=== PATIENT | female | born 1945 | race Caucasian/White ===

== ENCOUNTER 2016-11-02 15:08 | Emergency (ER) | payer MEDICARE ==
[2016-11-02] MEDS ORDERED: APIXABAN 5 MG TAB PO STA (16:11)
--- NOTE | 2016-11-02 16:11 | ED ---
General Adult HPI - General Chief complaint: Extremity Problem,Nontraumatic Stated complaint: L knee blood clot Time Seen by Provider: 11/02/16 15:22 Source: patient, RN notes reviewed Mode of arrival: ambulatory Limitations: no limitations - History of Present Illness Initial comments: Patient is a pleasant 71-year-old female presenting to the emergency department complaining of left leg discomfort. Symptoms started almost 2 weeks ago. Patient did have some mild discomfort behind her right knee however that resolved after a couple of days. Patient denies any chest discomfort. No difficulty in breathing. No history of similar symptoms previously. Patient is not currently on any blood thinners. - Related Data Home Medications Medication Instructions Recorded Confirmed Levothyroxine Sodium [Synthroid] 75 mcg PO DAILY 02/03/15 11/02/16 Simvastatin [Zocor] 40 mg PO HS 02/03/15 11/02/16 Ascorbic Acid [Vitamin C] 250 mg PO DAILY 11/02/16 11/02/16 Cholecalciferol [Vitamin D3] 1,000 unit PO DAILY 11/02/16 11/02/16 [place]-3 Fatty Acids/Fish Oil [Fish 1 cap PO DAILY 11/02/16 11/02/16 Oil 1,000 mg Softgel] Previous Rx's Medication Instructions Recorded Apixaban [Eliquis] 5 mg PO BID #75 tab 11/02/16 Allergies Allergy/AdvReac Type Severity Reaction Status Date / Time naproxen [From Naprosyn] Allergy Unknown Verified 11/02/16 15:16 rofecoxib [From Vioxx] Allergy Unknown Verified 11/02/16 15:16 sulfamethoxazole Allergy Unknown Verified 11/02/16 15:16 [From Bactrim] trimethoprim [From Bactrim] Allergy Unknown Verified 11/02/16 15:16 celecoxib [From Celebrex] AdvReac Nausea & Verified 02/03/15 08:37 Vomiting Review of Systems ROS Statement: Those systems with pertinent positive or pertinent negative responses have been documented in the HPI. ROS Other: All systems not noted in ROS Statement are negative. Constitutional: Denies: fever Eyes: Denies: eye pain ENT: Denies: ear pain Respiratory: Denies: cough, dyspnea Cardiovascular: Denies: chest pain Endocrine: Denies: fatigue Gastrointestinal: Denies: abdominal pain Genitourinary: Denies: urgency Musculoskeletal: Denies: back pain Skin: Denies: rash Neurological: Denies: weakness Past Medical History Past Medical History: Hyperlipidemia, Osteoarthritis (OA), Thyroid Disorder History of Any Multi-Drug Resistant Organisms: None Reported Past Surgical History: Hysterectomy Past Psychological History: No Psychological Hx Reported Smoking Status: Current every day smoker Past Alcohol Use History: None Reported Past Drug Use History: None Reported General Exam Limitations: no limitations General appearance: alert, in no apparent distress Head exam: Present: atraumatic Eye exam: Present: normal appearance, PERRL ENT exam: Present: normal oropharynx Neck exam: Present: normal inspection Respiratory exam: Present: normal lung sounds bilaterally Cardiovascular Exam: Present: regular rate, normal rhythm Expanded Peripheral pulses: 2+: Posterior Tibialis (R), Posterior Tibialis (L) GI/Abdominal exam: Present: soft. Absent: tenderness Extremities exam: Present: tenderness (Mild tenderness behind the left knee). Absent: pedal edema, calf tenderness Neurological exam: Present: alert Psychiatric exam: Present: normal affect, normal mood Skin exam: Present: normal color Course Vital Signs 11/02/16 15:12 Temperature 98.1 F Pulse Rate 90 Respiratory 20 Rate Blood Pressure 135/65 O2 Sat by Pulse 99 Oximetry Medical Decision Making - Medical Decision Making Patient is warned of risks regarding anticoagulants. Disposition Clinical Impression: Deep vein thrombosis of lower extremity Disposition: HOME SELF-CARE Condition: Stable Instructions: Deep Venous Thrombosis (ED) Additional Instructions: Please follow-up to in the beginning of the week. Return for chest pain or difficulty in breathing, increased leg swelling, bleeding, worsening symptoms or other concerns. Prescriptions: Apixaban [Eliquis] 5 mg PO BID #75 tab Referrals: Austyn Ponce MD [Primary Care Provider] - 1-2 days Time of Disposition: 16:10
[2016-11-02 16:32] VITALS: BP 144/70; PULSE 81; RESP 18; TEMP 98.7
== END 2016-11-02 16:32 | disposition home or self-care (01) ==
LOC: EC 15:08
DX: I82.402 Acute embolism and thrombosis of unspecified deep veins of left lower extremity (principal); E78.5 Hyperlipidemia, unspecified; E07.9 Disorder of thyroid, unspecified; F17.200 Nicotine dependence, unspecified, uncomplicated; Z88.2 Allergy status to sulfonamides; Z88.6 Allergy status to analgesic agent; Z88.8 Allergy status to other drugs, medicaments and biological substances; Z79.899 Other long term (current) drug therapy
CPT/HCPCS: 99283

== ENCOUNTER → 2016-11-02 | Outpatient (CLI) | payer MEDICARE ==
--- NOTE | 2016-11-02 14:17 | US ---
EXAMINATION TYPE: US venous doppler duplex LE DATE OF EXAM: 11/02/2016 1:21 PM COMPARISON: NONE CLINICAL HISTORY: Edema lower Extremities R60.0. SIDE PERFORMED: Bilateral TECHNIQUE: The lower extremity deep venous system is examined utilizing real time linear array sonog kalyn with graded compression, doppler sonography and color-flow sonography. VESSELS IMAGED: External Iliac Vein (EIV) Common Femoral Vein Deep Femoral Vein Greater Saphenous Vein * Femoral Vein Popliteal Vein Small Saphenous Vein * Proximal Calf Veins (* superficial vessels) Grayscale, color doppler, spectral doppler imaging performed of the deep veins of the lower extremiti es. There is normal flow, compressibility, vascular waveforms bilaterally. Right Leg: Negative for DVT Left Leg: Positive for DVT Fluid seen behind left knee medially. IMPRESSION: No evidence for DVT.
== END ==
LOC: RADUSWWP 12:35
PROVIDERS: ATTEND Family Medicine
DX: I82.432 Acute embolism and thrombosis of left popliteal vein (principal)
CPT/HCPCS: 93970

== ENCOUNTER → 2016-11-21 | Outpatient (CLI) | payer MEDICARE ==
--- NOTE | 2016-11-21 09:56 | XR ---
EXAMINATION TYPE: XR knee complete LT DATE OF EXAM: 11/21/2016 COMPARISON: NONE HISTORY: Pain TECHNIQUE: Four views are submitted. FINDINGS: Severe narrowing of the joint space noted with hypertrophic changes. Small amount of fluid in the sup rapatellar bursa. Osseous structures are intact. No acute fracture seen. IMPRESSION: 1. Severe osteoarthritis.
== END | disposition home or self-care (01) ==
LOC: RADXRMAIN 09:25
PROVIDERS: ATTEND Physician Assistant
DX: M17.12 Unilateral primary osteoarthritis, left knee (principal)

== ENCOUNTER 2016-11-24 06:14 | Emergency (ER) | payer MEDICARE ==
--- NOTE | 2016-11-24 06:32 | ED ---
General Adult HPI - General Source: patient, family, RN notes reviewed Mode of arrival: wheelchair Limitations: no limitations <Ashish Wolff - Last Filed: 11/24/16 06:59> <Ashish Talbot - Last Filed: 11/24/16 07:52> - General Chief complaint: GI Bleed Stated complaint: blood in spit Time Seen by Provider: 11/24/16 06:20 - History of Present Illness Initial comments: This is a 71-year-old female presents emergency Department with a past medical history significant for a blood clot in her right leg. Patient states she's on eliquis for the condition. Patient comes in today because she coughed once and a little sputum came up and there was bright red blood in the sputum. Patient states she's not having any chest pain there is no difficulty breathing or shortness of breath. Patient denies any other abnormal bleeding. Patient states she blew her nose and there was no blood in her nose. Patient denies any bleeding in her mouth. Patient denies any trauma recently. Patient denies any dark black or bloody stools. Patient denies any hematuria. Patient states besides the bleeding she has had no other symptoms at this time. (Ashish Wolff) - Related Data Home Medications Medication Instructions Recorded Confirmed Levothyroxine Sodium [Synthroid] 75 mcg PO DAILY 02/03/15 11/24/16 Simvastatin [Zocor] 40 mg PO HS 02/03/15 11/24/16 Ascorbic Acid [Vitamin C] 250 mg PO DAILY 11/02/16 11/24/16 Cholecalciferol [Vitamin D3] 1,000 unit PO DAILY 11/02/16 11/24/16 [place]-3 Fatty Acids/Fish Oil [Fish 1 cap PO DAILY 11/02/16 11/24/16 Oil 1,000 mg Softgel] Previous Rx's Medication Instructions Recorded Apixaban [Eliquis] 5 mg PO BID #75 tab 11/02/16 Allergies Allergy/AdvReac Type Severity Reaction Status Date / Time naproxen [From Naprosyn] Allergy Unknown Verified 11/24/16 06:20 rofecoxib [From Vioxx] Allergy Unknown Verified 11/24/16 06:20 sulfamethoxazole Allergy Unknown Verified 11/24/16 06:20 [From Bactrim] trimethoprim [From Bactrim] Allergy Unknown Verified 11/24/16 06:20 celecoxib [From Celebrex] AdvReac Nausea & Verified 11/24/16 06:20 Vomiting Review of Systems ROS Other: All systems not noted in ROS Statement are negative. <Ashish Wolff - Last Filed: 11/24/16 06:59> ROS Other: All systems not noted in ROS Statement are negative. <Ashish Talbot - Last Filed: 11/24/16 07:52> ROS Statement: Those systems with pertinent positive or pertinent negative responses have been documented in the HPI. Past Medical History Past Medical History: Deep Vein Thrombosis (DVT), Hyperlipidemia, Osteoarthritis (OA), Thyroid Disorder History of Any Multi-Drug Resistant Organisms: None Reported Past Surgical History: Hysterectomy Past Psychological History: No Psychological Hx Reported Smoking Status: Current every day smoker Past Alcohol Use History: None Reported Past Drug Use History: None Reported <Ashish Wolff - Last Filed: 11/24/16 06:59> General Exam Limitations: no limitations <Ashish Wolff - Last Filed: 11/24/16 06:59> General appearance: alert, in no apparent distress Head exam: Present: atraumatic, normocephalic, normal inspection Eye exam: Present: normal appearance, PERRL, EOMI. Absent: scleral icterus, conjunctival injection, periorbital swelling ENT exam: Present: normal exam, mucous membranes moist Neck exam: Present: normal inspection. Absent: tenderness, meningismus, lymphadenopathy Respiratory exam: Present: normal lung sounds bilaterally. Absent: respiratory distress, wheezes, rales, rhonchi, stridor Cardiovascular Exam: Present: regular rate, normal rhythm, normal heart sounds. Absent: systolic murmur, diastolic murmur, rubs, gallop, clicks GI/Abdominal exam: Present: soft, normal bowel sounds. Absent: distended, tenderness, guarding, rebound, rigid Extremities exam: Present: normal inspection, full ROM, normal capillary refill. Absent: tenderness, pedal edema, joint swelling, calf tenderness Back exam: Present: normal inspection Neurological exam: Present: alert, oriented X3, CN II-XII intact Psychiatric exam: Present: normal affect, normal mood Skin exam: Present: warm, dry, intact, normal color. Absent: rash <Ashish Talbot - Last Filed: 11/24/16 07:52> - General Exam Comments Initial Comments: GENERAL: Patient is well-developed and well-nourished. Patient is nontoxic and well- hydrated and is in no acute distress. ENT: Neck is soft and supple. No significant lymphadenopathy is noted. Oropharynx is clear. Moist mucous membranes. Neck has full range of motion without eliciting any pain. EYES: The sclera were anicteric and conjunctiva were pink and moist. Extraocular movements were intact and pupils were equal round and reactive to light. Eyelids were unremarkable. PULMONARY: Unlabored respirations. Good breath sounds bilaterally. No audible rales rhonchi or wheezing was noted. CARDIOVASCULAR: There is a regular rate and rhythm without any murmurs gallops or rubs. ABDOMEN: Soft and nontender with normal bowel sounds. No palpable organomegaly was noted. There is no palpable pulsatile mass. SKIN: Skin is clear with no lesions or rashes and otherwise unremarkable. NEUROLOGIC: Patient is alert and oriented x3. Cranial nerves II through XII are grossly intact. Motor and sensory are also intact. Normal speech, volume and content. Symmetrical smile. MUSCULOSKELETAL: Normal extremities with adequate strength and full range of motion. LYMPHATICS: No significant lymphadenopathy is noted PSYCHIATRIC: Normal psychiatric evaluation. (Ashish Wolff) Course <Ashish Wolff - Last Filed: 11/24/16 06:59> <Ashish Talbot - Last Filed: 11/24/16 07:52> Vital Signs 11/24/16 11/24/16 11/24/16 06:16 06:29 07:37 Temperature 98 F 97.9 F 97.6 F Pulse Rate 85 77 64 Respiratory 18 16 16 Rate Blood Pressure 125/65 121/64 109/61 O2 Sat by Pulse 95 97 97 Oximetry - Reevaluation(s) Reevaluation #1: 11/24/16 07:52 Patient is in no acute distress has no complaints. (Ashish Talbot) Medical Decision Making <Ashish Wolff - Last Filed: 11/24/16 06:59> - Lab Data Result diagrams: 11/24/16 06:30 11/24/16 06:30 - Radiology Data Radiology results: report reviewed (Chest x-ray is negative for acute disease), image reviewed <Ashish Talbot - Last Filed: 11/24/16 07:52> - Medical Decision Making Dr. Ac will be taking over the care of this patient 7 AM (Ashish Wolff) 71 female in the ER for evaluation. Patient presents today for evaluation of coughing up blood. No vomiting or coughing up blood here in the emergency room. No abdominal pain. Recent blood in her stools. He will has normal and stable, patient is not lightheaded dizziness or weight with no shortness of breath, no continue coughing. No episodes of coughing up blood here in the emergency room, patient is on [place] which she will continue. Patient can be discharged (Ashish Talbot) - Lab Data Lab Results 11/24/16 11/24/16 11/24/16 Range/Units 06:30 06:30 06:30 WBC 8.7 (3.8-10.6) k/uL RBC 4.40 (3.80-5.40) m/uL Hgb 14.2 (11.4-16.0) gm/dL Hct 41.5 (34.0-46.0) % MCV 94.1 (80.0-100.0) fL MCH 32.3 (25.0-35.0) pg MCHC 34.3 (31.0-37.0) g/dL RDW 13.5 (11.5-15.5) % Plt Count 275 (150-450) k/uL Neutrophils % 55 % Lymphocytes % 33 % Monocytes % 7 % Eosinophils % 2 % Basophils % 1 % Neutrophils # 4.8 (1.3-7.7) k/uL Lymphocytes # 2.8 (1.0-4.8) k/uL Monocytes # 0.6 (0-1.0) k/uL Eosinophils # 0.2 (0-0.7) k/uL Basophils # 0.1 (0-0.2) k/uL PT 10.1 (9.0-12.0) sec INR 1.0 (<1.2) APTT 24.5 (22.0-30.0) sec Sodium 140 (137-145) mmol/L Potassium 4.4 (3.5-5.1) mmol/L Chloride 107 (98-107) mmol/L Carbon Dioxide 24 (22-30) mmol/L Anion Gap 9 mmol/L BUN 13 (7-17) mg/dL Creatinine 0.63 (0.52-1.04) mg/dL Est GFR (MDRD) Af Amer >60 (>60 ml/min/1.73 sqM) Est GFR (MDRD) Non-Af >60 (>60 ml/min/1.73 sqM) Glucose 92 (74-99) mg/dL Calcium 9.6 (8.4-10.2) mg/dL Total Bilirubin 0.3 (0.2-1.3) mg/dL AST 27 (14-36) U/L ALT 32 (9-52) U/L Alkaline Phosphatase 80 (38-126) U/L Total Protein 6.7 (6.3-8.2) g/dL Albumin 4.1 (3.5-5.0) g/dL Disposition <Ashish Wolff - Last Filed: 11/24/16 06:59> <Ashish Talbot - Last Filed: 11/24/16 07:52> Clinical Impression: Hemoptysis Disposition: HOME SELF-CARE Condition: Good Instructions: Hemoptysis (ED) Referrals: Austyn Ponce MD [Primary Care Provider] - 1-2 days
[2016-11-24 06:34] VITALS: RESP 16
[2016-11-24 06:56] LABS: Basophils # (A) 0.1 k/uL (0-0.2); Basophils % (A) 1 %; CH 32.2; CHCM 34.3; Eosinophils # (A) 0.2 k/uL (0-0.7); Eosinophils % (A) 2 %; HCT 41.5 % (34.0-46.0); HDW 2.13; HGB 14.2 gm/dL (11.4-16.0); Luc # (Auto) 0.17; Luc % (Auto) 2; Lymphocytes # (A) 2.8 k/uL (1.0-4.8); Lymphocytes % (A) 33 %; MCH 32.3 pg (25.0-35.0); MCHC 34.3 g/dL (31.0-37.0); MCV 94.1 fL (80.0-100.0); Mean Platelet Volume 7.5; Monocytes # (A) 0.6 k/uL (0-1.0); Monocytes % (A) 7 %; Neutrophils # (A) 4.8 k/uL (1.3-7.7); Neutrophils % (A) 55 %; RDW 13.5 % (11.5-15.5); WBC 8.7 k/uL (3.8-10.6); WBC (Perox) 8.39
[2016-11-24 07:04] LABS: Partial Thromboplastin Time 24.5 sec (22.0-30.0); Prothrombin Time 10.1 sec (9.0-12.0)
[2016-11-24 07:08] LABS: ALT 32 U/L (9-52); AST 27 U/L (14-36); Alkaline Phosphatase 80 U/L (38-126); Anion Gap 9 mmol/L; Blood Urea Nitrogen 13 mg/dL (7-17); Calcium 9.6 mg/dL (8.4-10.2); Carbon Dioxide 24 mmol/L (22-30); Chloride 107 mmol/L (98-107); Glucose 92 mg/dL (74-99); Non-African American GFR(MDRD) >60 (>60 ml/min/1.73 sqM); Potassium 4.4 mmol/L (3.5-5.1); Sodium 140 mmol/L (137-145); Total Bilirubin 0.3 mg/dL (0.2-1.3); Total Protein 6.7 g/dL (6.3-8.2)
--- NOTE | 2016-11-24 07:08 | XR ---
EXAM: XR Chest, 2 Views. CLINICAL HISTORY: Reason: pain TECHNIQUE: Frontal and lateral views of the chest. COMPARISON: 02/03/15. FINDINGS: Lungs: Unremarkable. No consolidation. Pleural spaces: Unremarkable. No pneumothorax. Heart: Unremarkable. No cardiomegaly. Mediastinum: Unremarkable. Bones: Unremarkable. No acute fracture. IMPRESSION: No evidence of active cardiopulmonary abnormality.
[2016-11-24 07:39] VITALS: BP 109/61; PULSE 64; TEMP 97.6
== END 2016-11-24 08:10 | disposition home or self-care (01) ==
LOC: EC 06:14
DX: R04.2 Hemoptysis (principal); R05 Cough; E78.5 Hyperlipidemia, unspecified; E07.9 Disorder of thyroid, unspecified; F17.200 Nicotine dependence, unspecified, uncomplicated; Z86.718 Personal history of other venous thrombosis and embolism; Z88.2 Allergy status to sulfonamides; Z88.6 Allergy status to analgesic agent; Z88.8 Allergy status to other drugs, medicaments and biological substances; Z79.01 Long term (current) use of anticoagulants; Z79.899 Other long term (current) drug therapy
CPT/HCPCS: 36415; 71020; 80053; 85025; 85610; 85730; 99284

== ENCOUNTER → 2016-12-19 | Outpatient (CLI) | payer MEDICARE ==
--- NOTE | 2016-12-19 08:29 | US ---
EXAMINATION TYPE: US liver DATE OF EXAM: 12/19/2016 and 12/30/2013 COMPARISON: Ultrasound 04/18/[address] 01/08/2014 CLINICAL HISTORY: D18.[address] RUCTURES. History of liver hemangioma TECHNIQUE: Multiple sonographic images of the right upper quadrant are obtained. FINDINGS: Liver Length: 16.0 cm Gallbladder Wall: 0.2 cm CBD: 0.5 cm Right Kidney: 9.9 x 4.8 x 4.6 cm Pancreas: No gross abnormality. Slight limitation in visualization of the pancreatic tail due to shad owing from bowel gas. Liver: Coarsened echotexture could be on technical basis. Within the central left hepatic lobe, ther e is an echogenic lesion measuring 1.6 x 1.8 x 1.6 cm. Previously, this measured 1.5 x 1.7 x 1.4 cm. On 12/30/2013, it was measured at 1.8 x 2.1 x 1.6 cm. This is not felt to have significantly increased in size. Gallbladder: wnl Evidence for sonographic Hanna's sign: no CBD: wnl Right Kidney: No hydronephrosis. IMPRESSION: 1. The 1.8 cm echogenic lesion in the central left hepatic lobe is essentially unchanged from 016 and possibly slightly smaller as compared to 12/30/2013. A benign hemangioma is suspected. 2. Slight heterogeneous appearance to the liver could be on a technical basis or could indicate nonsp ecific hepatocellular disease.
== END | disposition home or self-care (01) ==
LOC: RADUSWWP 07:30
DX: K76.89 Other specified diseases of liver (principal)
CPT/HCPCS: 76705

== ENCOUNTER → 2017-03-11 | Outpatient (CLI) | payer MEDICARE ==
--- NOTE | 2017-03-11 16:59 | US ---
EXAMINATION TYPE: US venous doppler duplex LE DATE OF EXAM: 03/11/2017 4:27 PM COMPARISON: US CLINICAL HISTORY: I82.409 History of Deep Vein Thrombosis. SIDE PERFORMED: Bilateral TECHNIQUE: The lower extremity deep venous system is examined utilizing real time linear array sonog kalyn with graded compression, doppler sonography and color-flow sonography. VESSELS IMAGED: External Iliac Vein (EIV) Common Femoral Vein Deep Femoral Vein Greater Saphenous Vein * Femoral Vein Popliteal Vein Small Saphenous Vein * Proximal Calf Veins (* superficial vessels) Right Leg: Negative for DVT Left Leg: Negative for DVT IMPRESSION: Negative exam. No evidence of deep venous thrombosis in both legs. There is a 4 x 1.3 cm left-sided popliteal cyst noted.
== END ==
LOC: RADUSWWP 15:41
PROVIDERS: ATTEND Family Medicine
DX: M71.22 Synovial cyst of popliteal space [Baker], left knee (principal); I82.409 Acute embolism and thrombosis of unspecified deep veins of unspecified lower extremity
CPT/HCPCS: 93970

== ENCOUNTER 2018-03-21 08:28 | Observation (INO) | payer MEDICARE ==
[2018-03-21] MEDS ORDERED: MAG HYDROX/AL HYDROX/SIMETH 30 ML, HYOSCYAMINE ELIXIR 10 ML, CIMETIDINE HCL 300 MG PO STA ×3 (09:39)
[2018-03-21] MEDS ORDERED: SODIUM CHLORIDE 0.9% 1,000 ML IV STA (09:39)
--- NOTE | 2018-03-21 09:41 | ED ---
Abdominal Pain HPI - General Chief Complaint: Abdominal Pain Stated Complaint: Chest pain Time Seen by Provider: 03/21/18 08:57 Source: patient, RN notes reviewed Mode of arrival: wheelchair Limitations: no limitations - History of Present Illness Initial Comments: 72-year-old female presents emergency Department chief complaint of epigastric pain. Patient states started around 11:00 last night. Patient states that radiates straight to her back. Patient states that she tried Tums 3 times no relief. Patient states that she still feels like it's heartburn. Patient denies any shortness of breath. Patient does have some lower chest pain. Patient denies any headache or dizziness. Patient side nauseated no vomiting no diarrhea no constipation. Patient has no dysuria no hematuria. Patient has a history of hyperlipidemia and hypothyroidism along with arthritis - Related Data Home Medications Medication Instructions Recorded Confirmed Levothyroxine Sodium [Synthroid] 75 mcg PO DAILY 02/03/15 03/21/18 Simvastatin [Zocor] 40 mg PO HS 02/03/15 03/21/18 Ascorbic Acid [Vitamin C] 250 mg PO DAILY 11/02/16 03/21/18 Cholecalciferol [Vitamin D3] 1,000 unit PO DAILY 11/02/16 03/21/18 [place]-3 Fatty Acids/Fish Oil [Fish 1 cap PO DAILY 11/02/16 03/21/18 Oil 1,000 mg Softgel] Amoxic-Pot Clav 875-125Mg 1 tab PO Q12HR 03/21/18 03/21/18 [Augmentin 875-125] Allergies Allergy/AdvReac Type Severity Reaction Status Date / Time naproxen [From Naprosyn] Allergy Unknown Verified 03/21/18 09:13 rofecoxib [From Vioxx] Allergy Unknown Verified 03/21/18 09:13 sulfamethoxazole Allergy Unknown Verified 03/21/18 09:13 [From Bactrim] trimethoprim [From Bactrim] Allergy Unknown Verified 03/21/18 09:13 celecoxib [From Celebrex] AdvReac Nausea & Verified 03/21/18 09:13 Vomiting Review of Systems ROS Statement: Those systems with pertinent positive or pertinent negative responses have been documented in the HPI. ROS Other: All systems not noted in ROS Statement are negative. Past Medical History Past Medical History: Deep Vein Thrombosis (DVT), Hyperlipidemia, Osteoarthritis (OA), Thyroid Disorder History of Any Multi-Drug Resistant Organisms: None Reported Past Surgical History: Hysterectomy, Tonsillectomy Past Psychological History: No Psychological Hx Reported Smoking Status: Current some day smoker Past Alcohol Use History: None Reported Past Drug Use History: None Reported General Exam General appearance: alert, in no apparent distress Head exam: Present: atraumatic, normocephalic, normal inspection Eye exam: Present: normal appearance, PERRL, EOMI. Absent: scleral icterus, conjunctival injection, periorbital swelling Respiratory exam: Present: normal lung sounds bilaterally. Absent: respiratory distress, wheezes, rales, rhonchi, stridor Cardiovascular Exam: Present: regular rate, normal rhythm, normal heart sounds. Absent: systolic murmur, diastolic murmur, rubs, gallop, clicks GI/Abdominal exam: Present: soft, tenderness (Mild epigastric tenderness), normal bowel sounds. Absent: distended, guarding, rebound, rigid Back exam: Absent: CVA tenderness (R), CVA tenderness (L) Neurological exam: Present: alert, oriented X3, CN II-XII intact, reflexes normal. Absent: motor sensory deficit Course Vital Signs 03/21/18 08:31 Temperature 98.1 F Pulse Rate 78 Respiratory 16 Rate Blood Pressure 129/77 O2 Sat by Pulse 97 Oximetry Medical Decision Making - Medical Decision Making 72-year-old female presents emergency from for abdominal pain, lower chest pain. Patient has some evidence of esophagitis. Patient will be admitted for chest pain observation and further evaluation of this esophagitis. - Lab Data Result diagrams: 03/21/18 09:09 03/21/18 09:09 Lab Results 03/21/18 03/21/18 03/21/18 Range/Units 09:09 09:09 09:09 WBC 13.4 H (3.8-10.6) k/uL RBC 4.85 (3.80-5.40) m/uL Hgb 15.2 (11.4-16.0) gm/dL Hct 45.8 (34.0-46.0) % MCV 94.3 (80.0-100.0) fL MCH 31.3 (25.0-35.0) pg MCHC 33.2 (31.0-37.0) g/dL RDW 13.4 (11.5-15.5) % Plt Count 293 (150-450) k/uL Neutrophils % 65 % Lymphocytes % 24 % Monocytes % 7 % Eosinophils % 1 % Basophils % 0 % Neutrophils # 8.7 H (1.3-7.7) k/uL Lymphocytes # 3.2 (1.0-4.8) k/uL Monocytes # 0.9 (0-1.0) k/uL Eosinophils # 0.2 (0-0.7) k/uL Basophils # 0.1 (0-0.2) k/uL PT (9.0-12.0) sec INR (<1.2) APTT (22.0-30.0) sec Sodium 135 L (137-145) mmol/L Potassium 4.5 (3.5-5.1) mmol/L Chloride 102 (98-107) mmol/L Carbon Dioxide 25 (22-30) mmol/L Anion Gap 8 mmol/L BUN 17 (7-17) mg/dL Creatinine 0.63 (0.52-1.04) mg/dL Est GFR (CKD-EPI)AfAm >90 (>60 ml/min/1.73 sqM) Est GFR (CKD-EPI)NonAf 89 (>60 ml/min/1.73 sqM) Glucose 89 (74-99) mg/dL Plasma Lactic Acid [place] 1.9 (0.7-2.0) mmol/L Calcium 10.5 H (8.4-10.2) mg/dL Total Bilirubin 0.3 (0.2-1.3) mg/dL AST 35 (14-36) U/L ALT 47 (9-52) U/L Alkaline Phosphatase 84 (38-126) U/L Troponin I (0.000-0.034) ng/mL Total Protein 6.8 (6.3-8.2) g/dL Albumin 4.0 (3.5-5.0) g/dL Amylase 77 (30-110) U/L Lipase 167 (23-300) U/L Urine Color Urine Appearance (Clear) Urine pH (5.0-8.0) Ur Specific [place] (1.001-1.035) Urine Protein (Negative) Urine Glucose (UA) (Negative) Urine Ketones (Negative) Urine Blood (Negative) Urine Nitrite (Negative) Urine Bilirubin (Negative) Urine Urobilinogen (<2.0) mg/dL Ur Leukocyte Esterase (Negative) Urine RBC (0-5) /hpf Urine WBC (0-5) /hpf Ur Squamous Epith Cells (0-4) /hpf Hyaline Casts (0-2) /lpf Urine Mucus (None) /hpf 03/21/18 03/21/18 03/21/18 Range/Units 09:09 09:09 10:28 WBC (3.8-10.6) k/uL RBC (3.80-5.40) m/uL Hgb (11.4-16.0) gm/dL Hct (34.0-46.0) % MCV (80.0-100.0) fL MCH (25.0-35.0) pg MCHC (31.0-37.0) g/dL RDW (11.5-15.5) % Plt Count (150-450) k/uL Neutrophils % % Lymphocytes % % Monocytes % % Eosinophils % % Basophils % % Neutrophils # (1.3-7.7) k/uL Lymphocytes # (1.0-4.8) k/uL Monocytes # (0-1.0) k/uL Eosinophils # (0-0.7) k/uL Basophils # (0-0.2) k/uL PT 9.6 (9.0-12.0) sec INR 1.0 (<1.2) APTT 20.8 L (22.0-30.0) sec Sodium (137-145) mmol/L Potassium (3.5-5.1) mmol/L Chloride (98-107) mmol/L Carbon Dioxide (22-30) mmol/L Anion Gap mmol/L BUN (7-17) mg/dL Creatinine (0.52-1.04) mg/dL Est GFR (CKD-EPI)AfAm (>60 ml/min/1.73 sqM) Est GFR (CKD-EPI)NonAf (>60 ml/min/1.73 sqM) Glucose (74-99) mg/dL Plasma Lactic Acid [place] (0.7-2.0) mmol/L Calcium (8.4-10.2) mg/dL Total Bilirubin (0.2-1.3) mg/dL AST (14-36) U/L ALT (9-52) U/L Alkaline Phosphatase (38-126) U/L Troponin I <0.012 (0.000-0.034) ng/mL Total Protein (6.3-8.2) g/dL Albumin (3.5-5.0) g/dL Amylase (30-110) U/L Lipase (23-300) U/L Urine Color Yellow Urine Appearance Clear (Clear) Urine pH 5.5 (5.0-8.0) Ur Specific [place] 1.015 (1.001-1.035) Urine Protein Negative (Negative) Urine Glucose (UA) Negative (Negative) Urine Ketones Negative (Negative) Urine Blood Trace H (Negative) Urine Nitrite Negative (Negative) Urine Bilirubin Negative (Negative) Urine Urobilinogen <2.0 (<2.0) mg/dL Ur Leukocyte Esterase Negative (Negative) Urine RBC 1 (0-5) /hpf Urine WBC <1 (0-5) /hpf Ur Squamous Epith Cells 2 (0-4) /hpf Hyaline Casts 3 H (0-2) /lpf Urine Mucus Rare H (None) /hpf 03/21/18 12:22 EKG performed a: 49 sinus rhythm with a rate of 78 TX 128 QRS 76 QT/QTC 388/419 Disposition Clinical Impression: Esophagitis, Chest pain Disposition: ADMITTED IP TO THIS HOSP Condition: Fair Referrals: Austyn Ponce MD [Primary Care Provider] - 1-2 days
[2018-03-21 09:58] LABS: Basophils # (A) 0.1 k/uL (0-0.2); Basophils % (A) 0 %; Eosinophils # (A) 0.2 k/uL (0-0.7); Eosinophils % (A) 1 %; HCT 45.8 % (34.0-46.0); HGB 15.2 gm/dL (11.4-16.0); Lymphocytes # (A) 3.2 k/uL (1.0-4.8); Lymphocytes % (A) 24 %; MCH 31.3 pg (25.0-35.0); MCHC 33.2 g/dL (31.0-37.0); MCV 94.3 fL (80.0-100.0); Mean Platelet Volume 6.8; Monocytes # (A) 0.9 k/uL (0-1.0); Monocytes % (A) 7 %; Neutrophils # (A) 8.7 k/uL (1.3-7.7); Neutrophils % (A) 65 %; Platelet Count 293 k/uL (150-450); RBC 4.85 m/uL (3.80-5.40); RDW 13.4 % (11.5-15.5); WBC 13.4 k/uL (3.8-10.6)
[2018-03-21 10:13] LABS: ALT 47 U/L (9-52); AST 35 U/L (14-36); Alkaline Phosphatase 84 U/L (38-126); Amylase 77 U/L (30-110); Anion Gap 8 mmol/L; Blood Urea Nitrogen 17 mg/dL (7-17); Calcium 10.5 mg/dL (8.4-10.2); Carbon Dioxide 25 mmol/L (22-30); Chloride 102 mmol/L (98-107); Glucose 89 mg/dL (74-99); Lipase 167 U/L (23-300); Potassium 4.5 mmol/L (3.5-5.1); Prothrombin Time 9.6 sec (9.0-12.0); Sodium 135 mmol/L (137-145); Total Bilirubin 0.3 mg/dL (0.2-1.3); Total Protein 6.8 g/dL (6.3-8.2)
[2018-03-21 10:25] LABS: Partial Thromboplastin Time 20.8 sec (22.0-30.0)
[2018-03-21 10:56] LABS: Appearance,Urine Clear (Clear); Bilirubin,Urine Negative (Negative); Blood,Urine Trace (Negative); Color,Urine Yellow; Glucose,Urine (UA) Negative (Negative); Hyaline Casts,Urine 3 /lpf (0-2); Ketones,Urine Negative (Negative); Leukocyte Esterase,Urine Negative (Negative); Mucus,Urine Rare /hpf; Nitrite,Urine Negative (Negative); PH, Urine 5.5 (5.0-8.0); Protein,Urine Negative (Negative); RBC,Urine 1 /hpf (0-5); Specific Gravity,Urine 1.015 (1.001-1.035); Squamous Epithelial Cell,Urine 2 /hpf (0-4); Urobilinogen,Urine <2.0 mg/dL (<2.0); WBC,Urine <1 /hpf (0-5)
--- NOTE | 2018-03-21 12:07 | CT ---
EXAMINATION TYPE: CT abdomen pelvis w con DATE OF EXAM: 03/21/2018 COMPARISON: 01/08/2014 HISTORY: EPIGASTRIC PAIN X [address] DLP: 677.4 mGycm CONTRAST: CT scan of the abdomen and pelvis is performed without Oral Contrast and with IV Contrast, patient in jected with 100 mL of Isovue 300. FINDINGS: LUNG BASES-: No visible nodule. No infiltrate. LIVER/GB: No calcified gallstones. No space occupying hepatic lesion. Biliary tree is of normal ca liber. PANCREAS: No inflammation. No distinct mass. SPLEEN: No splenic enlargement. No lesion seen. ADRENALS: No nodule. No thickening. KIDNEYS/BLADDER: No hydronephrosis. No nephrolithiasis. No distinct renal mass. Urinary bladder g rossly unremarkable. BOWEL: Fixed hiatal hernia with wall thickening of the distal esophagus which may reflect underlying esophagitis. Correlate clinically and consider direct visualization. Poor distention of the stomach. Mild small bowel distention may reflect ileus. Normal appendix. Normal bowel caliber. No inflammati on. GENITAL ORGANS: No gross abnormality. LYMPH NODES: No greater than 1cm abdominal or pelvic lymph nodes are appreciated. AORTA: No significant abnormality. OSSEOUS STRUCTURES: No significant abnormality is seen. OTHER: No significant additional abnormality is seen. IMPRESSION: 1. Fixed hiatal hernia with wall thickening of the distal esophagus which may reflect underlying esop hagitis. Correlate clinically and consider direct visualization.
[2018-03-21] MEDS ORDERED: HEPARIN SODIUM,PORCINE 5,000 UNIT/ML 1 ML VIAL IV ONE (12:23)
[2018-03-21] MEDS ORDERED: PANTOPRAZOLE 40 MG/10 ML VIAL IVP STA (12:24)
[2018-03-21] MEDS ORDERED: HEPARIN SOD,PORK IN 0.45% NACL 25,000 UNIT in 0.45% NACL 1 500ML.BAG IV SCH (12:30)
[2018-03-21 16:00] LABS: Creatine Kinase <20 U/L (30-135)
[2018-03-21 16:13] LABS: Creatine Kinase MB 0.9 ng/mL (0.0-2.4); Troponin I <0.012 ng/mL (0.000-0.034)
[2018-03-21] MEDS ORDERED: MELATONIN 5 MG TABLET PO ONE (20:20)
[2018-03-21] MEDS: PANTOPRAZOLE 40 MG/10 ML VIAL IVP SCH (20:21)
[2018-03-21] MEDS ORDERED: HEPARIN SODIUM,PORCINE 5,000 UNIT/ML 1 ML VIAL IV PRN (20:24)
[2018-03-21 20:29] VITALS: RESP 16
[2018-03-21] MEDS: ATORVASTATIN 20 MG TAB PO SCH (20:45)
[2018-03-21 21:10] LABS: Creatine Kinase <20 U/L (30-135)
[2018-03-21 21:24] LABS: Creatine Kinase MB 0.8 ng/mL (0.0-2.4); Troponin I <0.012 ng/mL (0.000-0.034)
--- NOTE | 2018-03-21 23:03 | P.HPIM ---
History of Present Illness H&P Date: 03/21/18 Chief Complaint: Chest pain Patient is a 72-year-old female with a known history of hypothyroidism, hyperlipidemia and previous history of DVT as well as osteoarthritis came to hospital with complaints of epigastric abdominal pain. Patient says that pain started around 11 PM last night. Pain radiates to the back. Associated with some nausea. Patient states that she tried Tums 3 times no relief. Patient denied any complaints of chest pain. No vomiting. No hematemesis or melena. No headache or dizziness or lightheadedness. Patient has been taking amoxicillin twice daily for the past 10 days due to ear infection. WBC 13.4 EKG sinus rhythm Chest x-ray showed fixed hiatal hernia with a wall thickening of the distal esophagus which may reflect underlying is Esophagitis. Correlate clinically. Review of Systems Constitutional: Patient denies any fever or chills . No generalized weakness or weight loss. Abdomen: Epigastric abdominal pain and nausea. No diarrhea. No vomiting.. Cardiovascular: Patient denies any chest pain or short of breath no palpitations. Respiratory: patient denied any cough is from production. No shortness of breath Neurologic: Patient denied any numbness or tingling headache. Musculoskeletal: Patient denies any complaints of joint swelling or deformity. Skin: Negative Psychiatric: Negative Endocrine: No heat or cold intolerance. No recent weight gain. Genitourinary: No dysuria or hematuria. All other 14 point ROS negative except the above Past Medical History Past Medical History: Deep Vein Thrombosis (DVT), Hyperlipidemia, Osteoarthritis (OA), Thyroid Disorder History of Any Multi-Drug Resistant Organisms: None Reported Past Surgical History: Hysterectomy, Tonsillectomy Past Psychological History: No Psychological Hx Reported Smoking Status: Current some day smoker Past Alcohol Use History: None Reported Past Drug Use History: None Reported Medications and Allergies Home Medications Medication Instructions Recorded Confirmed Type Levothyroxine Sodium [Synthroid] 75 mcg PO DAILY 02/03/15 03/21/18 History Simvastatin [Zocor] 40 mg PO HS 02/03/15 03/21/18 History Ascorbic Acid [Vitamin C] 250 mg PO DAILY 11/02/16 03/21/18 History Cholecalciferol [Vitamin D3] 1,000 unit PO DAILY 11/02/16 03/21/18 History [place]-3 Fatty Acids/Fish Oil [Fish 1 cap PO DAILY 11/02/16 03/21/18 History Oil 1,000 mg Softgel] Amoxic-Pot Clav 875-125Mg 1 tab PO Q12HR 03/21/18 03/21/18 History [Augmentin 875-125] Allergies Allergy/AdvReac Type Severity Reaction Status Date / Time naproxen [From Naprosyn] Allergy Unknown Verified 03/21/18 09:13 rofecoxib [From Vioxx] Allergy Unknown Verified 03/21/18 09:13 sulfamethoxazole Allergy Unknown Verified 03/21/18 09:13 [From Bactrim] trimethoprim [From Bactrim] Allergy Unknown Verified 03/21/18 09:13 celecoxib [From Celebrex] AdvReac Nausea & Verified 03/21/18 09:13 Vomiting Physical Exam Vitals: Vital Signs Temp Pulse Resp BP Pulse Ox 03/21/18 12:40 98.1 F 92 18 136/83 98 03/21/18 08:31 98.1 F 78 16 129/77 97 Intake and Output 03/21/18 03/21/18 03/21/18 06:59 14:59 22:59 Other: Weight 68.946 kg PHYSICAL EXAMINATION: Patient is lying in the bed comfortably, no acute distress, awake alert and oriented.. HEENT: Normocephalic. Neck is supple. Pupils reactive. Nostrils clear. Oral cavity is moist. Ears reveal no drainage. Neck reveals no JVD, carotid bruits, or thyromegaly. CHEST EXAMINATION: Trachea is central. Symmetrical expansion. Lung lacey clear to auscultation and percussion. CARDIAC: Normal S1, S2 with no gallops. No murmurs ABDOMEN: Soft. Bowel sounds normal. No organomegaly. No abdominal bruits. Extremities: reveal no edema. No clubbing or cyanosis Neurologically awake, alert, oriented x3 with well-coordinated movements. No focal deficits noted Skin: No rash or skin lesions. Psychiatric: Coperative. Nonsuicidal Musculoskeletal: No joint swelling or deformity. Normal range of motion. Results CBC & Chem 7: 03/21/18 09:09 03/21/18 09:09 Labs: Abnormal Lab Results - Last 24 Hours (Table) 03/21/18 03/21/18 03/21/18 Range/Units 09:09 09:09 09:09 WBC 13.4 H (3.8-10.6) k/uL Neutrophils # 8.7 H (1.3-7.7) k/uL APTT 20.8 L (22.0-30.0) sec Sodium 135 L (137-145) mmol/L Calcium 10.5 H (8.4-10.2) mg/dL Urine Blood (Negative) Hyaline Casts (0-2) /lpf Urine Mucus (None) /hpf //18 Range/Units 10:28 WBC (3.8-10.6) k/uL Neutrophils # (1.3-7.7) k/uL APTT (22.0-30.0) sec Sodium (137-145) mmol/L Calcium (8.4-10.2) mg/dL Urine Blood Trace H (Negative) Hyaline Casts 3 H (0-2) /lpf Urine Mucus Rare H (None) /hpf Thrombosis Risk Factor Assmnt - DVT/VTE Prophylaxis DVT/VTE Prophylaxis: Pharmacologic Prophylaxis ordered Assessment and Plan Assessment: Epigastric abdominal pain most likely gastritis pill related Atypical chest pain. Rule out ACS Hyperlipidemia Hypothyroidism Osteoarthritis Previous history of DVT Nicotine addiction. Currently every day smoker DVT prophylaxis Plan: Patient be continued on PPI twice a day. Continue with the telemetry monitoring. Serial EKGs and troponins. Cardiac rhythm was consulted. Continue the current management and further recommendations based on the clinical course. Time with Patient: Greater than 30
[2018-03-22] MEDS: LEVOTHYROXINE 75 MCG TAB PO SCH (04:52)
[2018-03-22 07:26] LABS: Basophils # (A) 0.1 k/uL (0-0.2); Basophils % (A) 0 %; Eosinophils # (A) 0.2 k/uL (0-0.7); Eosinophils % (A) 2 %; HCT 39.9 % (34.0-46.0); HGB 13.2 gm/dL (11.4-16.0); Lymphocytes # (A) 3.4 k/uL (1.0-4.8); Lymphocytes % (A) 28 %; MCH 31.5 pg (25.0-35.0); MCV 95.4 fL (80.0-100.0); Mean Platelet Volume 7.2; Monocytes # (A) 0.7 k/uL (0-1.0); Monocytes % (A) 6 %; Neutrophils # (A) 7.8 k/uL (1.3-7.7); Neutrophils % (A) 63 %; Platelet Count 265 k/uL (150-450); RBC 4.19 m/uL (3.80-5.40); RDW 13.5 % (11.5-15.5); WBC 12.4 k/uL (3.8-10.6)
[2018-03-22] MEDS ORDERED: NON-FORMULARY DRUG (Omega-3 Fatty Acids/Fish Oil [Fish Oil 1,000 Mg Softgel] 1 CAP) PO SCH (09:00)
[2018-03-22 09:10] LABS: Anion Gap 8 mmol/L; Blood Urea Nitrogen 13 mg/dL (7-17); Calcium 9.9 mg/dL (8.4-10.2); Carbon Dioxide 21 mmol/L (22-30); Chloride 108 mmol/L (98-107); Cholesterol 131 mg/dL (<200); Glucose 104 mg/dL (74-99); HDL Cholesterol 69 mg/dL (40-60); LDL Cholesterol,Calculated 32 mg/dL (0-99); Potassium 4.8 mmol/L (3.5-5.1); Sodium 137 mmol/L (137-145); Triglycerides 149 mg/dL (<150)
[2018-03-22] MEDS: CHOLECALCIFEROL 1,000 UNIT TAB PO SCH (10:37)
[2018-03-22] MEDS: PANTOPRAZOLE 40 MG/10 ML VIAL IVP SCH ×2 (10:38→20:59)
[2018-03-22] MEDS: ASCORBIC ACID 500 MG TAB PO SCH (10:38)
--- NOTE | 2018-03-22 15:49 | P.CRDCN ---
History of Present Illness History of present illness: This is a pleasant 72 female past medical history significant for dyslipidemia, hypothyroidism, osteoarthritis and chronic nicotine dependence. She denies history of coronary artery disease, hypertension or diabetes mellitus. 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 We've been asked to see her in consultation for symptoms of epigastric discomfort. She states only one week ago she was having symptoms of cough and was started on antibiotics and steroids per her primary care physician. She has been taking these for one week. night she started feeling a burning in the epigastric region with radiation up through the midsternal region into her throat which she describes as a sore throat sensation. She got up to take a Tums to see if this would help and she achieved no relief. She continued with her regular routine all day Saturday continues to have intermittent episodes of burning in the epigastric region. She denies associated shortness of breath, palpitations, dizziness or any precordial chest pain. She does recall having some mild nausea yesterday. EKG reveals sinus mechanism with no acute ST or T wave abnormalities noted. CT of the abdomen and pelvis reveals a fixed hiatal hernia with wall thickening of the distal flap edges which may reflect underlying esophagitis, correlate clinically. Laboratory data reviewed, WBC 12.4, hemoglobin 13.2, platelets 265, sodium 137, potassium 4.8, creatinine 0.59, cardiac enzymes negative 3, LDL 32 and HDL 69. Current cardiac medications include simvastatin 40 mg daily. At the time of my exam: CONSTITUTIONAL: Denies fever. Denies chills. EYES: Denies blurred vision. Denies vision changes. Denies eye pain. EARS, NOSE, MOUTH & THROAT: Denies headache. Denies sore throat. Denies ear pain. CARDIOVASCULAR: Denies chest pain. Denies shortness of breath. Denies orthopnea. Denies PND. Denies palpitations. RESPIRATORY: Denies cough. GASTROINTESTINAL: Denies abdominal pain. Denies diarrhea. Denies constipation. Denies nausea. Denies vomiting. MUSCULOSKELETAL: Denies myalgias. INTEGUMENTARY: Denies pruitis. Denies rash. NEUROLOGIC: Denies numbness. Denies tingling. Denies weakness. PSYCHIATRIC: Denies anxiety. Denies depression. ENDOCRINE: Denies fatigue. Denies weight change. Denies polydipsia. Denies polyurina. GENITOURINARY: Denies burning, hematuria or urgency with micturation. HEMATOLOGIC: Denies history of anemia. Denies bleeding. Blood pressure 127/82 heart rate 68 afebrile maintaining oxygen saturation on room air GENERAL: This is a 72-year-old female in no apparent distress at the time of my examination. HEENT: Head is atraumatic, normocephalic. Pupils are equal, round. Sclerae anicteric. Conjunctivae are clear. Mucous membranes of the mouth are moist. Neck is supple. There is no jugular venous distention. No carotid bruit is heard. LUNGS: Clear to auscultation no wheezes, rales or rhonchi. No chest wall tenderness is noted on palpation or with deep breathing. HEART: Regular rate and rhythm without murmurs, rubs or gallops. S1 and S2 heard. ABDOMEN: Soft, nontender. Bowel sounds are heard. No organomegaly noted. EXTREMITIES: No evidence of peripheral edema and no calf tenderness noted. VASCULAR: Radial and dorsalis pedis pulses palpated, no evidence of clubbing. NEUROLOGIC: Patient is awake, alert and oriented x3. ASSESSMENT Epigastric burning and antibiotics and oral steroids with nausea Dyslipidemia Chronic nicotine dependence PLAN An acute coronary event is ruled out with no EKG evidence of ischemia and negative cardiac enzymes. Heparin infusion may be discontinued. Obtain 2-D echocardiogram and Doppler study to assess cardiac structure and function. Symptoms are most likely related to recent antibiotic and steroid use. Not indicative of angina. She is hemodynamically stable and is appropriate to be discharged to follow-up as an outpatient for stress testing. Thank you kindly for this consultation. Nurse Practitioner note has been reviewed, I agree with a documented findings and plan of care. Patient was seen and examined. Past Medical History Past Medical History: Deep Vein Thrombosis (DVT), Hyperlipidemia, Osteoarthritis (OA), Thyroid Disorder History of Any Multi-Drug Resistant Organisms: None Reported Past Surgical History: Hysterectomy, Tonsillectomy Past Anesthesia/Blood Transfusion Reactions: No Reported Reaction Past Psychological History: No Psychological Hx Reported Smoking Status: Current some day smoker Past Alcohol Use History: None Reported Past Drug Use History: None Reported Medications and Allergies Home Medications Medication Instructions Recorded Confirmed Type Levothyroxine Sodium [Synthroid] 75 mcg PO DAILY 02/03/15 03/21/18 History Simvastatin [Zocor] 40 mg PO HS 02/03/15 03/21/18 History Ascorbic Acid [Vitamin C] 250 mg PO DAILY 11/02/16 03/21/18 History Cholecalciferol [Vitamin D3] 1,000 unit PO DAILY 11/02/16 03/21/18 History [place]-3 Fatty Acids/Fish Oil [Fish 1 cap PO DAILY 11/02/16 03/21/18 History Oil 1,000 mg Softgel] Amoxic-Pot Clav 875-125Mg 1 tab PO Q12HR 03/21/18 03/21/18 History [Augmentin 875-125] Allergies Allergy/AdvReac Type Severity Reaction Status Date / Time naproxen [From Naprosyn] Allergy Unknown Verified 03/21/18 09:13 rofecoxib [From Vioxx] Allergy Unknown Verified 03/21/18 09:13 sulfamethoxazole Allergy Unknown Verified 03/21/18 09:13 [From Bactrim] trimethoprim [From Bactrim] Allergy Unknown Verified 03/21/18 09:13 celecoxib [From Celebrex] AdvReac Nausea & Verified 03/21/18 09:13 Vomiting Physical Exam Vitals: Vital Signs Temp Pulse Pulse Pulse Resp BP BP 03/22/18 03:38 98.1 F 71 16 120/71 03/22/18 03:19 16 03/21/18 23:41 16 03/21/18 23:33 98.2 F 58 L 16 162/66 03/21/18 20:00 98.4 F 66 16 109/65 03/21/18 18:29 98.5 F 69 18 110/68 03/21/18 18:05 98.5 F 69 18 110/68 03/21/18 17:30 64 8 L 122/77 03/21/18 17:00 66 16 116/89 03/21/18 16:30 67 15 116/89 03/21/18 16:00 69 17 113/68 03/21/18 12:40 98.1 F 92 18 136/83 03/21/18 08:31 98.1 F 78 16 129/77 Pulse Ox 03/22/18 03:38 96 03/22/18 03:19 03/21/18 23:41 03/21/18 23:33 98 03/21/18 20:00 95 03/21/18 18:29 96 03/21/18 18:05 96 03/21/18 17:30 94 L 03/21/18 17:00 95 03/21/18 16:30 95 03/21/18 16:00 96 03/21/18 12:40 98 03/21/18 08:31 97 Intake and Output 03/21/18 03/22/18 03/22/18 22:59 06:59 14:59 Other: Voiding Method Toilet Toilet # Voids 2 Results 03/22/18 06:46 03/22/18 06:46 Cardiac Enzymes 03/21/18 03/21/18 03/21/18 Range/Units 09:09 09:09 15:09 AST 35 (14-36) U/L CK-MB (CK-2) 0.9 (0.0-2.4) ng/mL Troponin I <0.012 <0.012 (0.000-0.034) ng/mL 03/21/18 Range/Units 20:39 AST (14-36) U/L CK-MB (CK-2) 0.8 (0.0-2.4) ng/mL Troponin I <0.012 (0.000-0.034) ng/mL Coagulation 03/21/18 03/21/18 Range/Units 09:09 20:39 PT 9.6 (9.0-12.0) sec APTT 20.8 L 55.8 H (22.0-30.0) sec CBC 03/21/18 03/22/18 Range/Units 09:09 06:46 WBC 13.4 H 12.4 H (3.8-10.6) k/uL RBC 4.85 4.19 (3.80-5.40) m/uL Hgb 15.2 13.2 (11.4-16.0) gm/dL Hct 45.8 39.9 (34.0-46.0) % Plt Count 293 265 (150-450) k/uL Comprehensive Metabolic Panel 03/21/18 Range/Units 09:09 Sodium 135 L (137-145) mmol/L Potassium 4.5 (3.5-5.1) mmol/L Chloride 102 (98-107) mmol/L Carbon Dioxide 25 (22-30) mmol/L BUN 17 (7-17) mg/dL Creatinine 0.63 (0.52-1.04) mg/dL Glucose 89 (74-99) mg/dL Calcium 10.5 H (8.4-10.2) mg/dL AST 35 (14-36) U/L ALT 47 (9-52) U/L Alkaline Phosphatase 84 (38-126) U/L Total Protein 6.8 (6.3-8.2) g/dL Albumin 4.0 (3.5-5.0) g/dL Current Medications Generic Name Dose Route Start Last Admin Trade Name Freq PRN Reason Stop Dose Admin Ascorbic Acid 250 mg 03/22/18 09:00 Vitamin C PO DAILY [facility] Atorvastatin Calcium 20 mg 03/21/18 21:00 03/21/18 20:45 Lipitor PO 20 mg HS LISBETH Administration Cholecalciferol 1,000 unit 03/22/18 12:00 Vitamin D3 PO DAILY@1200 LISBETH Heparin Sodium (Porcine) 0 unit 03/21/18 20:24 Heparin IV PER PROTOCOL PRN Low PTT Protocol Heparin Sodium/Sodium Chloride 500 mls @ 16.54 mls/hr 03/21/18 12:30 14:17 25,000 unit/ Sodium Chloride IV 12 units/kg/hr .Q24H LISBETH 16.54 mls/hr Administration Protocol 12 UNITS/KG/HR Levothyroxine Sodium 75 mcg 03/22/18 06:30 03/22/18 04:52 Synthroid PO 75 mcg DAILY@0630 LISBETH Administration Pantoprazole Sodium 40 mg 03/21/18 21:00 03/21/18 20:21 Protonix IVP 40 mg BID LISBETH Administration Intake and Output 03/21/18 03/22/18 03/22/18 22:59 06:59 14:59 Other: Voiding Method Toilet Toilet # Voids 2 03/22/18 06:46 03/21/18 09:09
[2018-03-22] MEDS: ATORVASTATIN 20 MG TAB PO SCH (20:59)
[2018-03-23] MEDS: LEVOTHYROXINE 75 MCG TAB PO SCH ×2 (06:08→06:09)
[2018-03-23] MEDS: ASCORBIC ACID 500 MG TAB PO SCH (08:34)
[2018-03-23] MEDS: CHOLECALCIFEROL 1,000 UNIT TAB PO SCH (08:34)
[2018-03-23] MEDS: PANTOPRAZOLE 40 MG/10 ML VIAL IVP SCH (08:34)
--- NOTE | 2018-03-23 08:35 | ECHOF ---
Referral Reason: MEASUREMENTS -------- HEIGHT: 160.0 cm WEIGHT: 68.9 kg BP: IVSd: 1.2 cm (0.6 - 1.1) LVIDd: 3.4 cm (3.9 - 5.3) LVPWd: 1.1 cm (0.6 - 1.1) IVSs: 1.6 cm LVIDs: 1.9 cm LVPWs: 1.3 cm LAESV Index (A-L): 20.10 ml/m Ao Diam: 3.0 cm (2.0 - 3.7) AV Cusp: 1.9 cm (1.5 - 2.6) LA Diam: 2.8 cm (2.7 - 3.8) MV EXCURSION: 13.362 mm (> 18.000) MV EF SLOPE: 33 mm/s (70 - 150) EPSS: 0.2 cm MV E Cal: 0.48 m/s MV DecT: 289 ms MV A Cal: 0.66 m/s MV E/A Ratio: 0.73 RAP: 5.00 mmHg RVSP: 10.33 mmHg FINDINGS -------- Sinus rhythm. This was a technically good study. The left ventricular size is normal. Left ventricular wall thickness is normal. Overall left vent ricular systolic function is normal with, an EF between 55 - 60 %. The right ventricle is normal in size and function. The left atrium is normal in size. The right atrium is normal in size. Aortic valve is trileaflet and is mildly thickened. The mitral valve leaflets are mildly thickened. There is trace mitral regurgitation. Trace tricuspid regurgitation present. The right ventricular systolic pressure, as measured by Dopp ler, is 10.33mmHg. Pulmonic valve appears structurally normal. The aortic root size is normal. Normal inferior vena cava with normal inspiratory collapse consistent with estimated right atrial pre ssure of 5 mmHg. The pericardium is normal. CONCLUSIONS -------- 1. Sinus rhythm. 2. This was a technically good study. 3. The left ventricular size is normal. 4. Left ventricular wall thickness is normal. 5. Overall left ventricular systolic function is normal with, an EF between 55 - 60 %. 6. The right ventricle is normal in size and function. 7. The left atrium is normal in size. 8. The right atrium is normal in size. 9. Aortic valve is trileaflet and is mildly thickened. 10. The mitral valve leaflets are mildly thickened. 11. There is trace mitral regurgitation. 12. Trace tricuspid regurgitation present. 13. The right ventricular systolic pressure, as measured by Doppler, is 10.33mmHg. 14. Pulmonic valve appears structurally normal. 15. The aortic root size is normal. 16. Normal inferior vena cava with normal inspiratory collapse consistent with estimated right atrial pressure of 5 mmHg. 17. The pericardium is normal. CENTER DIRECTOR: Paris Cruz RDCS
[2018-03-23 12:56] VITALS: BP 123/71; PULSE 67; TEMP 97.9
--- NOTE | 2018-03-25 17:41 | P.PN ---
Subjective Progress Note Date: 03/22/18 Principal diagnosis: Epigastric pain Recent sinusitis and postnasal drip Patient is a 72-year-old female with a known history of hypothyroidism, hyperlipidemia and previous history of DVT as well as osteoarthritis came to hospital with complaints of epigastric abdominal pain. Patient says that pain started around 11 PM last night. Pain radiates to the back. Associated with some nausea. Patient states that she tried Tums 3 times no relief. Patient denied any complaints of chest pain. No vomiting. No hematemesis or melena. No headache or dizziness or lightheadedness. Patient has been taking amoxicillin twice daily for the past 10 days due to ear infection. WBC 13.4 EKG sinus rhythm Chest x-ray showed fixed hiatal hernia with a wall thickening of the distal esophagus which may reflect underlying is Esophagitis. Correlate clinically. 03/22/2018 Patient denied any complains of epigastric pain. Complains of postnasal drip but has been improving. No difficulty swallowing. No commerce of chest pain. Cardiology has seen the patient recommended 2-D echocardiogram. Patient will be continued on Protonix and. No other overnight issues. No nausea vomiting or abdominal pain. Current medications reviewed. Objective - Vital Signs Vital signs: Vital Signs Temp 98.2 F 03/22/18 16:00 Pulse 63 03/22/18 16:00 Resp 16 03/22/18 16:00 BP 109/68 03/22/18 16:00 Pulse Ox 95 03/22/18 16:00 Intake & Output 03/21/18 03/22/18 03/22/18 18:59 06:59 18:59 Weight 68.946 kg Other: Voiding Method Toilet # Voids 2 - Exam PHYSICAL EXAMINATION: Patient is lying in the bed comfortably, no acute distress, awake alert and oriented.. HEENT: Normocephalic. Neck is supple. Pupils reactive. Nostrils clear. Oral cavity is moist. Ears reveal no drainage. Neck reveals no JVD, carotid bruits, or thyromegaly. CHEST EXAMINATION: Trachea is central. Symmetrical expansion. Lung lacey clear to auscultation and percussion. CARDIAC: Normal S1, S2 with no gallops. No murmurs ABDOMEN: Soft. Bowel sounds normal. No organomegaly. No abdominal bruits. Extremities: reveal no edema. No clubbing or cyanosis Neurologically awake, alert, oriented x3 with well-coordinated movements. No focal deficits noted Skin: No rash or skin lesions. Psychiatric: Coperative. Nonsuicidal Musculoskeletal: No joint swelling or deformity. Normal range of motion. - Labs CBC & Chem 7: 03/22/18 06:46 03/22/18 06:46 Labs: Abnormal Lab Results - Last 24 Hours (Table) 03/21/18 03/21/18 03/22/18 Range/Units 20:39 20:39 06:46 WBC (3.8-10.6) k/uL Neutrophils # (1.3-7.7) k/uL APTT 55.8 H (22.0-30.0) sec Chloride 108 H (98-107) mmol/L Carbon Dioxide 21 L (22-30) mmol/L Glucose 104 H (74-99) mg/dL Total Creatine Kinase <20 L (30-135) U/L HDL Cholesterol 69 H (40-60) mg/dL 03/22/18 03/22/18 Range/Units 06:46 06:46 WBC 12.4 H (3.8-10.6) k/uL Neutrophils # 7.8 H (1.3-7.7) k/uL APTT >200.0 H* (22.0-30.0) sec Chloride (98-107) mmol/L Carbon Dioxide (22-30) mmol/L Glucose (74-99) mg/dL Total Creatine Kinase (30-135) U/L HDL Cholesterol (40-60) mg/dL Assessment and Plan Assessment: Epigastric abdominal pain most likely gastritis pill related. Improved now Recently treated for acute sinusitis and postnasal drip. Atypical chest pain. Ruled out ACS Hyperlipidemia Hypothyroidism Osteoarthritis Previous history of DVT Nicotine addiction. Currently every day smoker DVT prophylaxis Plan: Patient be continued on PPI twice a day. Continue with the telemetry monitoring. Serial EKGs and troponins negative. Cardiology has seen the patient and recommended 2-D echocardiogram.. Continue the current management and further recommendations based on the clinical course. Time with Patient: Greater than 30
--- NOTE | 2018-03-25 17:44 | P.DS ---
Providers Date of admission: 03/21/18 13:00 Expected date of discharge: 03/23/18 Attending physician: Austyn Ponce Consults: 03/22/18 07:47 Consult Physician Routine Consulting Provider: Soraida Gavin Consult Reason/Comments: chest pain Do you want consulting provider notified?: Already Contacted Primary care physician: Austyn Ponce Hospital Course: Discharge diagnosis Epigastric abdominal pain most likely gastritis pill related. Improved now Recently treated for acute sinusitis and postnasal drip. Atypical chest pain. Ruled out ACS Hyperlipidemia Hypothyroidism Osteoarthritis Previous history of DVT Nicotine addiction. Currently every day smoker DVT prophylaxis Hospital course Patient is a 72-year-old female with a known history of hypothyroidism, hyperlipidemia and previous history of DVT as well as osteoarthritis came to hospital with complaints of epigastric abdominal pain. Patient says that pain started around 11 PM last night. Pain radiates to the back. Associated with some nausea. Patient states that she tried Tums 3 times no relief. Patient denied any complaints of chest pain. No vomiting. No hematemesis or melena. No headache or dizziness or lightheadedness. Patient has been taking amoxicillin twice daily for the past 10 days due to ear infection. WBC 13.4 EKG sinus rhythm Chest x-ray showed fixed hiatal hernia with a wall thickening of the distal esophagus which may reflect underlying is Esophagitis. Correlate clinically. 03/22/2018 Patient denied any complains of epigastric pain. Complains of postnasal drip but has been improving. No difficulty swallowing. No commerce of chest pain. Cardiology has seen the patient recommended 2-D echocardiogram. Patient will be continued on Protonix and. No other overnight issues. No nausea vomiting or abdominal pain. 03/23/2018 Patient denied any compressive chest pain or epigastric pain. No nausea vomiting or abdominal pain. Patient was still complaining of some postnasal drip but has been improved after antibiotic course. Patient was recommended to follow with primary care physician. Continue Protonix for 4 weeks. Otherwise 2 -D echo Cardizem showed normal ejection fraction and no significant valvular abnormality. Cleared from cardiology standpoint. Outpatient stress test in a week. Plan: Patient be continued on PPI twice a day. Continue with the telemetry monitoring. Serial EKGs and troponins negative. Cardiology has seen the patient and recommended 2-D echocardiogram.. Patient did improve quickly and is stable to be discharged home. PHYSICAL EXAMINATION: Patient is lying in the bed comfortably, no acute distress, awake alert and oriented.. HEENT: Normocephalic. Neck is supple. Pupils reactive. Nostrils clear. Oral cavity is moist. Ears reveal no drainage. Neck reveals no JVD, carotid bruits, or thyromegaly. CHEST EXAMINATION: Trachea is central. Symmetrical expansion. Lung lacey clear to auscultation and percussion. CARDIAC: Normal S1, S2 with no gallops. No murmurs ABDOMEN: Soft. Bowel sounds normal. No organomegaly. No abdominal bruits. Extremities: reveal no edema. No clubbing or cyanosis Neurologically awake, alert, oriented x3 with well-coordinated movements. No focal deficits noted Skin: No rash or skin lesions. Psychiatric: Coperative. Nonsuicidal Musculoskeletal: No joint swelling or deformity. Normal range of motion. Discharge vitals reviewed. Patient Condition at Discharge: Fair Plan - Discharge Summary Discharge Rx Participant: No New Discharge Prescriptions: New Pantoprazole Sodium [Protonix] 40 mg PO AC-BRKFST #28 tablet. Continue Simvastatin [Zocor] 40 mg PO HS Levothyroxine Sodium [Synthroid] 75 mcg PO DAILY Cholecalciferol [Vitamin D3] 1,000 unit PO DAILY Ascorbic Acid [Vitamin C] 250 mg PO DAILY [place]-3 Fatty Acids/Fish Oil [Fish Oil 1,000 mg Softgel] 1 cap PO DAILY Amoxic-Pot Clav 875-125Mg [Augmentin 875-125] 1 tab PO Q12HR Discharge Medication List Levothyroxine Sodium [Synthroid] 75 mcg PO DAILY 02/03/15 [History] Simvastatin [Zocor] 40 mg PO HS 02/03/15 [History] Ascorbic Acid [Vitamin C] 250 mg PO DAILY 11/02/16 [History] Cholecalciferol [Vitamin D3] 1,000 unit PO DAILY 11/02/16 [History] [place]-3 Fatty Acids/Fish Oil [Fish Oil 1,000 mg Softgel] 1 cap PO DAILY [History] Amoxic-Pot Clav 875-125Mg [Augmentin 875-125] 1 tab PO Q12HR 03/21/18 [History] Pantoprazole Sodium [Protonix] 40 mg PO AC-BRKFST #28 tablet. 11/18/18 [Rx] Follow up Appointment(s)/Referral(s): Austyn Ponce MD [Primary Care Provider] - 1-2 days Soraida Gavin MD [STAFF PHYSICIAN] - 2 Weeks Activity/Diet/Wound Care/Special Instructions: OP Stress cardiolite next week Discharge Disposition: HOME SELF-CARE
== END 2018-03-23 13:38 | disposition home or self-care (01) ==
LOC: EC 08:28 → 1SOBS 13:00
PROVIDERS: ADMIT Family Medicine; ATTEND Family Medicine
DX: R10.13 Epigastric pain (principal); K29.70 Gastritis, unspecified, without bleeding; J01.90 Acute sinusitis, unspecified; R09.82 Postnasal drip; R07.89 Other chest pain; E03.9 Hypothyroidism, unspecified; M19.90 Unspecified osteoarthritis, unspecified site; E78.5 Hyperlipidemia, unspecified; K20.9 Esophagitis, unspecified; K44.9 Diaphragmatic hernia without obstruction or gangrene; Z86.718 Personal history of other venous thrombosis and embolism; F17.200 Nicotine dependence, unspecified, uncomplicated; Z79.890 Hormone replacement therapy; Z79.899 Other long term (current) drug therapy; Z88.2 Allergy status to sulfonamides; Z88.8 Allergy status to other drugs, medicaments and biological substances; T36.0X5A Adverse effect of penicillins, initial encounter
CPT/HCPCS: 96366 ×3; 96376 ×4; 96361; 96365; 96375; 99285; 36415; 93005; 93306; 80061; 80053; 80048; 82150; 82550; 82553; 83605; 83690; 84484; 85025 ×2; 85610; 85730 ×2; 81001; 74177; G0378 ×3; J1644 ×2; C9113 ×3; Q9967

== ENCOUNTER → 2018-04-01 | Outpatient (CLI) | payer MEDICARE ==
[~2018-04-01] MED LIST: REGADENOSON 0.4 MG/5 ML SYRINGE IV ONE
--- NOTE | 2018-04-01 12:06 | NM ---
EXAMINATION TYPE: NM stress lexiscan cardiolite DATE OF EXAM: 04/01/2018 COMPARISON: NONE HISTORY: Chest pain TECHNIQUE: After the intravenous administration of 9.21 mCi Tc 99m Sestamibi - Cardiolite resting SP ECT images acquired 50 minutes post injection. The patient received 0.4mg Lexiscan, 25.7 mCi Tc 99m Sestamibi - Stress images obtained [address] injection FINDINGS: Review of stress and rest SPECT images demonstrates no distinct perfusion abnormality. Gated analysi s shows normal wall motion with an estimated left ventricular ejection fraction of 93 %. IMPRESSION: No scintigraphic evidence for reversible ischemia.
--- NOTE | 2018-04-01 14:38 | EST ---
EXERCISE STRESS AGE: 72 SEX: F HT: 63" WT: 152 PROTOCOL: Lexiscan Cardiolite Stress Test HEART RATE REST: 80 BLOOD PRESSURE REST: 146/75 MAXIMUM HEART RATE ACHIEVED: 106 MAXIMUM BLOOD PRESSURE: 156/71 INDICATIONS: Chest pain. CLINICAL INFORMATION: Baseline rhythm was sinus mechanism, rate of 80, borderline right axis deviation, poor R-wave progression. Baseline blood pressure 146/75 mmHg. Patient received injection of Lexiscan. Electrocardiographic monitoring revealed no evidence of diagnostic ischemic ST deviation. Cardiolite was injected per protocol. CONCLUSION: 1. Nondiagnostic electrocardiograph stress testing. 2. Nuclear images will be reported separately. MMODL / IJN: [id number] /
== END ==
LOC: RADNMMAIN 07:52
PROVIDERS: ATTEND Internal Medicine Cardiovascular Disease
DX: R07.9 Chest pain, unspecified (principal)
CPT/HCPCS: 93017; 78452; A9500

== ENCOUNTER 2018-09-15 11:48 | Day surgery (SDC) | payer MEDICARE ==
[2018-09-11 11:40] VITALS: BMI 26.7
[~2018-09-15 11:48] MED LIST changes: +LACTATED RINGERS 1,000 ML IV SCH; +LIDOCAINE 1% 20 ML VIAL (10MG/ML) FOR IV START INTRADERMA PRN; -REGADENOSON 0.4 MG/5 ML SYRINGE IV ONE
[2018-09-15 12:22] VITALS: TEMP 96.9
[2018-09-15 12:47] LABS: Glucose,Whole Blood 93 mg/dL (75-99)
[2018-09-15] MEDS ORDERED: PROPOFOL 10 MG/ML 20 ML VIAL IV ONE (14:41)
[2018-09-15 15:15] VITALS: RESP 16
--- NOTE | 2018-09-15 15:27 | P.PCN ---
Date of Procedure: 09/15/18 Procedure(s) Performed: Procedure: Esophagogastroduodenoscopy and biopsy. Preoperative diagnosis: Epigastric pain and abnormal CT. Postoperative diagnosis: 1. Sliding hiatal hernia with no obvious esophagitis or complicated reflux disease. 2. Mild antral gastritis. 3. Biopsies obtained from the duodenum, antrum and esophagus. Preparation and sedation: Were provided by anesthesia. Brief clinical history: The patient is a 73-year-old female who I have evaluated in the office last month for abdominal pain that started back in March 2018 around the time she was started on gabapentin. She had a computed tomography scan that showed possible thickening in the esophagus. 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 This evaluation is to assess for esophagitis, complicated reflux disease or other pathology. Procedure: With the patient on her left lateral decubitus position and after informed consent and adequate sedation, I passed the Olympus-GIF H 190 video upper endoscope through the cricopharyngeus down the esophagus. GE junction was around 33 cm from the incisors and there was a moderately sized sliding hiatal hernia but no obvious esophagitis or complicated reflux disease. The endoscope was then passed into the stomach which was insufflated with air and inspected in detail including the retroflex view in the cardia. There was some mottling and erythema in the antrum but no ulcers or erosions. Pyloric channel, duodenal bulb, post bulbar area and descending duodenum appeared within normal limits. I obtained multiple biopsies from the duodenum, antrum and esophagus then the endoscope was withdrawn. The patient tolerated the procedure well. Plan: The patient was reassured. Will await biopsy results. She will follow-up with you as planned and I will see her in follow-up in the office and keep you updated on her progress.
[2018-09-15 15:31] VITALS: BP 137/77; PULSE 69
== END 2018-09-15 15:37 | disposition home or self-care (01) ==
LOC: ORWHC2ENDO 11:48
DX: K29.50 Unspecified chronic gastritis without bleeding (principal); K44.9 Diaphragmatic hernia without obstruction or gangrene; E78.5 Hyperlipidemia, unspecified; M19.90 Unspecified osteoarthritis, unspecified site; Z86.718 Personal history of other venous thrombosis and embolism; E07.9 Disorder of thyroid, unspecified; Z79.890 Hormone replacement therapy; Z79.899 Other long term (current) drug therapy; Z88.6 Allergy status to analgesic agent; Z88.2 Allergy status to sulfonamides; Z88.8 Allergy status to other drugs, medicaments and biological substances
CPT/HCPCS: 88305; 43239; J2704

== ENCOUNTER → 2019-02-06 | Outpatient (CLI) | payer MEDICARE ==
--- NOTE | 2019-02-06 10:41 | US ---
EXAMINATION TYPE: US gallbladder DATE OF EXAM: 02/06/2019 COMPARISON: CT & US CLINICAL HISTORY: Cholecystitis K81.0. EXAM MEASUREMENTS: Liver Length: 14.2 cm Gallbladder Wall: 0.2 cm CBD: 0.4 cm Right Kidney: 11.1 x 4.1 x 4.4 cm Pancreas: prominent duct at 0.2 cm Liver: left lobe echogenic lesion measures 1.6 x 1.4 x 1.5 cm as seen on prior ultrasound. On the ex am of 12/23/1713 this measured 1.8 x 2.1 x 1.6 cm. On the exam of 12/19/2016 this measured 1.6 x 1.8 x 1.6 cm Gallbladder: No stones seen Evidence for sonographic Hanna's sign: No CBD: wnl Right Kidney: No hydronephrosis or masses seen IMPRESSION: 1. Pancreatic ductal prominence appears new from the prior exam of 12/19/2016. MRCP with and without c ontrast could be considered for further workup. 2. 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 3. No sonographic evidence of cholelithiasis nor acute cholecystitis.
== END | disposition home or self-care (01) ==
LOC: RADUSWWP 09:21
PROVIDERS: ATTEND Surgery Plastic and Reconstructive Surgery
DX: K81.0 Acute cholecystitis (principal); K21.9 Gastro-esophageal reflux disease without esophagitis
CPT/HCPCS: 76705

== ENCOUNTER → 2019-02-09 | Outpatient (CLI) | payer MEDICARE ==
--- NOTE | 2019-02-09 11:13 | FL ---
EXAMINATION TYPE: FL barium swallow DATE OF EXAM: 02/09/2019 CLINICAL HISTORY: History of hiatal hernia. Chest pain. TECHNIQUE: A double contrast esophagram is performed utilizing air and barium. A total of 1.04 phan anastasiia of fluoroscopic time was utilized during procedure. 36 fluoroscopic images were saved during the examination COMPARISON: None FINDINGS: The esophagus shows abnormal motility with appearance of a corkscrew esophagus. Esophageal mucosa of the mid and distal esophagus are irregular persistently throughout the examination again de monstrating a corkscrew esophagus. A small hiatal hernia is seen. Delayed flow is seen through the mi d and distal esophagus secondary to the abnormal contractility. No delayed emptying into the stomach through the gastroesophageal junction other than a small amount of residual contrast in the hiatal he rnia. No stricture is seen. No significant gastroesophageal reflux was seen during real time performa nce of this study. IMPRESSION: 1. 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 This may account for the patient's chest pain although for cardiac workup remains recommen ded. 2. Small hiatal hernia.
== END | disposition home or self-care (01) ==
LOC: RADUSWWP 08:52
PROVIDERS: ATTEND Surgery Plastic and Reconstructive Surgery
DX: K44.9 Diaphragmatic hernia without obstruction or gangrene (principal); K22.4 Dyskinesia of esophagus
CPT/HCPCS: 74220

== ENCOUNTER → 2019-02-14 | Outpatient (CLI) | payer MEDICARE ==
--- NOTE | 2019-02-14 11:51 | NM ---
Nuclear medicine hepatobiliary scan. HISTORY: Pain. COMPARISON: Ultrasound 02/06/2019 DOSAGE: The patient received 8 ounces of ensure plus and 4.4 mCi of Technetium 99m Choletec. FINDINGS: There is normal hepatic extraction. The gallbladder is seen not seen by 60 minutes. There is biliary to bowel clearance by 30 minutes. Ejection fraction is 93%. IMPRESSION: 1. The gallbladder is not seen with certainty at 60 minutes. Correlate for cholecystitis. 2. Ejection fraction of 93% correlate for hyperdynamic gallbladder.
== END | disposition home or self-care (01) ==
LOC: RADNMMAIN 08:49
PROVIDERS: ATTEND Surgery Plastic and Reconstructive Surgery
DX: K21.9 Gastro-esophageal reflux disease without esophagitis (principal); Z88.1 Allergy status to other antibiotic agents
CPT/HCPCS: 78226; A9537

== ENCOUNTER 2020-01-06 14:50 | Emergency (ER) | payer MEDICARE ==
[2020-01-06 15:03] VITALS: RESP 18; TEMP 98
[2020-01-06] MEDS ORDERED: ACETAMINOPHEN TAB 325 MG TAB PO STA (15:17)
--- NOTE | 2020-01-06 15:41 | CT ---
EXAMINATION TYPE: CT brain madai short DATE OF EXAM: 01/06/2020 COMPARISON: None HISTORY: Fall today with injury CT DLP: 1276.3 mGycm Automated exposure control for dose reduction was used. TECHNIQUE: CT scan of the head and cervical spine are performed without contrast. FINDINGS: There is no acute intracranial hemorrhage, mass effect, or midline shift identified. The ventricles and sulci are within normal limits in size. The globes are intact and the visualized sin uses are clear. Cervical spine is visualized in its entirety from C1 through upper thoracic levels and demonstrates n ear-anatomic alignment without evidence of acute fracture or dislocation. Prevertebral soft tissue a ppears within normal limits. The C1-C2 articulation is unremarkable. There is multilevel spondylosis with loss of disc height at intervertebral levels. Vacuum phenomenon present at C4-5. There is multi level foraminal encroachment and facet arthropathy. IMPRESSION: 1. There is no acute fracture or dislocation evident in the cervical spine. 2. No acute intracranial hemorrhage, mass effect, or midline shift is seen.
--- NOTE | 2020-01-06 16:00 | ED ---
Head Injury HPI - General Chief complaint: Head Injury Stated complaint: Fall, Head Injury Time Seen by Provider: 01/06/20 15:14 Source: patient Mode of arrival: wheelchair Limitations: no limitations - History of Present Illness Initial comments: 74yo female presenting to the ER today for cc of head injury. 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 Denies LOC denies anticoagulation therapy denies injury to the upper or lower extremities neck or back. Patient has slight headache patient denies additional complaints she appears well nontoxic on arrival - Related Data Home Medications Medication Instructions Recorded Confirmed Levothyroxine Sodium [Synthroid] 75 mcg PO DAILY 02/03/15 09/15/18 Simvastatin [Zocor] 40 mg PO HS 02/03/15 09/15/18 Ascorbic Acid [Vitamin C] 250 mg PO DAILY 11/02/16 09/15/18 Cholecalciferol [Vitamin D3 (25 1,000 unit PO DAILY 11/02/16 09/15/18 Mcg = 1000 Iu)] [place]-3 Fatty Acids/Fish Oil [Fish 1 cap PO DAILY 11/02/16 09/15/18 Oil 1,000 mg Softgel] Previous Rx's Medication Instructions Recorded Pantoprazole Sodium [Protonix] 40 mg PO AC-BRKFST #28 tablet. 03/23/18 Allergies/Adverse reactions: Allergies Allergy/AdvReac Type Severity Reaction Status Date / Time naproxen [From Naprosyn] Allergy Rash/Hives Verified 09/11/18 11:31 ranitidine Allergy Rash/Hives Verified 09/11/18 11:31 rofecoxib [From Vioxx] Allergy Nausea & Verified 09/11/18 11:31 Vomiting sulfamethoxazole Allergy Rash/Hives Verified 09/11/18 11:31 [From Bactrim] trimethoprim [From Bactrim] Allergy Rash/Hives Verified 09/11/18 11:31 celecoxib [From Celebrex] AdvReac Nausea & Verified 09/11/18 11:31 Vomiting Review of Systems ROS Statement: Those systems with pertinent positive or pertinent negative responses have been documented in the HPI. ROS Other: All systems not noted in ROS Statement are negative. Past Medical History Past Medical History: Deep Vein Thrombosis (DVT), Hyperlipidemia, Osteoarthritis (OA), Thyroid Disorder Additional Past Medical History / Comment(s): HIATAL HERNIA. POSSIBLE DVT BEHIND LT KNEE History of Any Multi-Drug Resistant Organisms: None Reported Past Surgical History: Hysterectomy, Tonsillectomy Additional Past Surgical History / Comment(s): LT LITTLE TOE SX. COLONOSCOPY. EGD Past Anesthesia/Blood Transfusion Reactions: No Reported Reaction Past Psychological History: No Psychological Hx Reported Past Alcohol Use History: None Reported Past Drug Use History: None Reported - Past Family History Mother Family Medical History: Cancer General Exam - General Exam Comments Initial Comments: General: The patient is awake and alert, in no distress, and does not appear acutely ill. Eye: +3 mm pupils are equal, round and reactive to light, extra-ocular movements are intact. No nystagmus. There is normal conjunctiva bilaterally. No signs of icterus. Ears, nose, mouth and throat: There are moist mucous membranes and no oral lesions. No raccoon or Vines sign Neck: The neck is supple, there is no tenderness or JVD. No midline tenderness to palpation of the cervical spine forward motion of cervical spine without significant discomfort Cardiovascular: There is a regular rate and rhythm. No murmur, rub or gallop is appreciated. Respiratory: Lungs are clear to auscultation, respirations are non-labored, breath sounds are equal. No wheezes, stridor, rales, or rhonchi. Musculoskeletal: Normal ROM, no tenderness. Strength 5/5. Sensation intact. Radial pulses equal bilaterally 2+. Neurological: A&O x 3. CN II-XII intact, There are no obvious motor or sensory deficits. Coordination appears grossly intact. Speech is normal. Skin: Skin is warm and dry and no rashes. Small area of redness over the left side of forehead. Psychiatric: Cooperative, appropriate mood & affect, normal judgment. Limitations: no limitations Course Vital Signs 01/06/20 01/06/20 14:59 16:16 Temperature 98.0 F 98.0 F Pulse Rate 76 70 Respiratory 18 18 Rate Blood Pressure 113/65 127/84 O2 Sat by Pulse 97 99 Oximetry Medical Decision Making - Medical Decision Making 74yo female presenting for trip and fall. mechanical. no loc. no thinner. CT (- ). patient has no focal deficits. mild TREVINO. Patietn discharged appearing well w ith return parameters and instruction to f/u with pcp. patient agreeable to discharge and care plan. Disposition Clinical Impression: Fall, Head injury Disposition: HOME SELF-CARE Condition: Good Instructions (If sedation given, give patient instructions): Fall Prevention (ED) Additional Instructions: Please use medication as discussed. Please follow-up with family doctor in the next 2 days.. Please return to emergency room if the symptoms increase or worsen or for any other concerns. Is patient prescribed a controlled substance at d/c from ED?: No Referrals: Austyn Ponce MD [Primary Care Provider] - 1-2 days Time of Disposition: 15:59
[2020-01-06 16:18] VITALS: BP 127/84; PULSE 70
== END 2020-01-06 16:18 | disposition home or self-care (01) ==
LOC: EC 14:50
DX: S09.90XA Unspecified injury of head, initial encounter (principal); E78.5 Hyperlipidemia, unspecified; M19.90 Unspecified osteoarthritis, unspecified site; E07.9 Disorder of thyroid, unspecified; Z79.890 Hormone replacement therapy; Z79.899 Other long term (current) drug therapy; Z88.6 Allergy status to analgesic agent; Z88.2 Allergy status to sulfonamides; Z88.1 Allergy status to other antibiotic agents; Z88.8 Allergy status to other drugs, medicaments and biological substances; Z86.718 Personal history of other venous thrombosis and embolism; W01.198A Fall on same level from slipping, tripping and stumbling with subsequent striking against other object, initial encounter; Y93.89 Activity, other specified; Y92.512 Supermarket, store or market as the place of occurrence of the external cause
CPT/HCPCS: 70450; 72125; 99283

== ENCOUNTER → 2020-07-05 | Outpatient (CLI) | payer MEDICARE ==
--- NOTE | 2020-07-05 17:53 | BD ---
EXAMINATION TYPE: Axial Bone Density DATE OF EXAM: 07/05/2020 COMPARISON: NONE CLINICAL HISTORY: Height: 5 FT 2 1/2 IN Weight: 145 FRAX RISK QUESTIONS: Alcohol (3 or more units per day): NO Family History (Parent hip fracture): NO Glucocorticoids (More than 3mos): NO (Ex: prednisone, prednisolone, methylprednisolone, dexamethasone, and hydrocortisone). History of Fracture in Adulthood: YES Secondary Osteoporosis: 1. Type 1 Diabetes: NO 2. Hyperthyroidism: NO 3. Menopause before 45: YES 4. Malnutrition: NO 5. Chronic liver disease: NO Rheumatoid Arthritis: NO Current Tobacco Use: YES RISK FACTORS HISTORY OF: Family History of Osteoporosis: NO Active: YES Diet low in dairy products/other sources of calcium: NO Postmenopausal woman: TOTAL HYST AGE 34 Take estrogen and/or progesterone medications: NONE Lost more than 2 inches in height since high school: YES MEDICATIONS: Thyroid Medications: YES Which medication: LEVOTHYROXINE How Long: OVER 30 YEARS Additional Medications: LEVOTHYROXINE, ZOCOR, OMEPRAZOLE, Additional History: GANGLION CYST OFF OF WRIST ALSO CYST REMOVED FROM SPINE IN THE 70'S EXAM MEASUREMENTS: Bone mineral densitometry was performed using the Fonix System. Bone mineral density as measured about the Lumbar spine is: ----- L1-L4(G/cm2): 1.416 T Score Values are as follows: ----- L2: 2.3 ----- L3: 2.7 ----- L4: 1.6 ----- L1-L4: 2.0 Bone mineral density has: INCREASED 5.9 % since study of: 2016 Bone mineral density about the R hip (g/cm2): 0.778 Bone mineral density about the L hip (g/cm2): 0.884 T Score values are as follows: -----R Neck: -1.9 -----L Neck: -1.1 -----R Total: -1.0 -----L Total: -1.1 Bone mineral density has: DECREASED -2.4 % since study of: 2016 IMPRESSION: Osteopenia (T Score between -2.5 and -1). There is slightly increased risk of fracture and the patient may be considered for treatment. Re-Screen 2-5 years. NOTE: T-SCORE=SD OF THE YOUNG ADULT MEAN.
--- NOTE | 2020-07-07 11:50 | MM ---
Reason for exam: screening (asymptomatic). Last mammogram was performed 4 years and 5 months ago. History: Patient is postmenopausal. Family history of breast cancer in grandmother. Took estrogen for 22 years 7 months. Physical Findings: A clinical breast exam by your physician is recommended on an annual basis and results should be correlated with mammographic findings. MG 3D Screening Mammo W/Cad Bilateral CC and MLO view(s) were taken. Prior study comparison: February 13, 2016, bilateral MG 3d screening mammo w/cad. November 02, 2014, bilateral MG screening mammo w CAD. There are scattered fibroglandular densities. There is chronic nodularity in the right breast. No significant changes when compared with prior studies. ASSESSMENT: Benign, BI-RAD 2 RECOMMENDATION: Routine screening mammogram of both breasts in 1 year.
== END ==
LOC: RADMAMWWP 09:42
PROVIDERS: ATTEND Family Medicine
DX: Z12.31 Encounter for screening mammogram for malignant neoplasm of breast (principal); Z78.0 Asymptomatic menopausal state; M85.89 Other specified disorders of bone density and structure, multiple sites
CPT/HCPCS: 77063; 77067; 77080

== ENCOUNTER → 2020-10-27 | Outpatient (CLI) | payer MEDICARE ==
--- NOTE | 2020-10-27 10:04 | US ---
EXAMINATION TYPE: US abdomen complete DATE OF EXAM: 10/27/2020 COMPARISON: US 2019, CT 2018 CLINICAL HISTORY: R10.11 right upper quad pain. RUQ pain EXAM MEASUREMENTS: Liver Length: 15.0 cm Gallbladder Wall: 0.2 cm CBD: 0.6 cm Spleen: Right Kidney: 10.4 x 4.4 x 4.6 cm Left Kidney: 10.7 x 3.7 x 3.5 cm Pancreas: wnl Liver: 1.5 x 1.4 x 1.5cm hyperechoic lesion left lobe, unchanged. Gallbladder: wnl Evidence for sonographic Hanna's sign: no CBD: Normal in size for age. Spleen: obscured by overlying bowel gas Right Kidney: 1.1cm cystic area lateral mid pole unchanged since prior CT. Left Kidney: wnl Upper IVC: wnl Abd Aorta: wnl IMPRESSION: 1. 1.5 cm hyperechoic lesion in the liver is unchanged and most likely represents an hemangioma, unch anged since CT dated 2018 when accounting for differences in technique. 2. Right renal cystic lesion is unchanged.
== END | disposition home or self-care (01) ==
LOC: RADUSWWP 08:47
PROVIDERS: ATTEND Family Medicine
DX: K76.9 Liver disease, unspecified (principal); N28.1 Cyst of kidney, acquired
CPT/HCPCS: 76700

== ENCOUNTER → 2022-01-12 | Outpatient (CLI) | payer MEDICARE ==
--- NOTE | 2022-01-19 18:08 | MM ---
Reason for Exam: Screening (asymptomatic). Last mammogram was performed 1 year(s) and 6 month(s) ago. Patient History: Menarche at age 12. First Full-Term at age 18. Left ovary removed at age 34. Right ovary removed at age 34. Hysterectomy at age 34. Postmenopausal. Estrogen for 22 years, 7 months. Maternal grandmother had breast cancer. Risk Values: Mayuri 5 year model risk: 1.4%. NCI Lifetime model risk: 2.5%. Prior Study Comparison: 11/02/2014 Bilateral Screening Mammogram, [facility]. 02/13/2016 Bilateral Screening Mammogram, [facility]. 07/05/2020 Bilateral Screening Mammogram, [facility]. Tissue Density: There are scattered fibroglandular densities. Findings: Analyzed By CAD. Stable appearing right breast mass with calcification. There is no suspicious group of microcalcifications or new suspicious mass in either breast. Overall Assessment: Benign, BI-RAD 2 Management: Screening Mammogram of both breasts in 1 year. A clinical breast exam by your physician is recommended on an annual basis and results should be correlated with mammographic findings. Electronically signed and approved by: Uche Theodore DO
== END | disposition home or self-care (01) ==
LOC: RADMAMWWP 13:23
PROVIDERS: ATTEND Family Medicine
DX: Z12.31 Encounter for screening mammogram for malignant neoplasm of breast (principal); Z78.0 Asymptomatic menopausal state; Z80.3 Family history of malignant neoplasm of breast
CPT/HCPCS: 77063; 77067

== ENCOUNTER 2023-01-01 08:53 | Emergency (ER) | payer MEDICARE ==
[2023-01-01 09:00] VITALS: TEMP 97
[2023-01-01] MEDS ORDERED: SODIUM CHLORIDE 0.9% 500 ML 500 ML IV STA (09:21)
--- NOTE | 2023-01-01 09:23 | ED ---
General Adult HPI - General Chief complaint: Dizziness Stated complaint: Dizziness Time Seen by Provider: 01/01/23 09:00 Source: patient, EMS, RN notes reviewed, old records reviewed Mode of arrival: EMS Limitations: no limitations - History of Present Illness Initial comments: 77-year-old female presents for evaluation of dizziness and lightheadedness. Symptoms began this morning. She states that she did have coffee this morning but did not eat breakfast. No vomiting. No chest pain. No abdominal pain. No diaphoresis. She states she had a slight headache and a slight cough. She denies focal numbness or weakness but states she did have some numbness to bilateral hands and bilateral feet. This has resolved. - Related Data Home Medications Medication Instructions Recorded Confirmed Simvastatin [Zocor] 40 mg PO HS 02/03/15 06/29/22 Cholecalciferol [Vitamin D3 (25 50 mcg PO DAILY 06/03/22 06/29/22 Mcg = 1000 Iu)] Famotidine [Pepcid] 40 mg PO DAILY 06/03/22 06/29/22 Levothyroxine Sodium [Synthroid] 88 mcg PO DAILY 06/03/22 06/29/22 Albuterol Inhaler [Ventolin Hfa 2 puff INHALATION RT-QID PRN 06/29/22 06/29/22 Inhaler] Ascorbic Acid [Vitamin C with Zuly 500 mg PO DAILY 06/29/22 06/29/22 Hips] Previous Rx's Medication Instructions Recorded Aspirin 81 mg PO DAILY 7 Days #7 tab 07/01/22 Nitroglycerin Sl Tabs [Nitrostat] 0.4 mg SUBLINGUAL Q5M PRN #10 tab 07/01/22 Allergies Allergy/AdvReac Type Severity Reaction Status Date / Time levofloxacin Allergy Unknown Verified 01/01/23 09:01 naproxen [From Naprosyn] Allergy Rash/Hives Verified 06/29/22 13:36 ranitidine Allergy Rash/Hives Verified 06/29/22 13:36 rofecoxib [From Vioxx] Allergy Nausea & Verified 06/29/22 13:36 Vomiting sulfamethoxazole Allergy Rash/Hives Verified 06/29/22 13:36 [From Bactrim] trimethoprim [From Bactrim] Allergy Rash/Hives Verified 06/29/22 13:36 celecoxib [From Celebrex] AdvReac Nausea & Verified 06/29/22 13:36 Vomiting Review of Systems ROS Statement: Those systems with pertinent positive or pertinent negative responses have been documented in the HPI. ROS Other: All systems not noted in ROS Statement are negative. Past Medical History Past Medical History: Deep Vein Thrombosis (DVT), Hyperlipidemia, Osteoarthritis (OA), Thyroid Disorder Additional Past Medical History / Comment(s): HIATAL HERNIA. POSSIBLE DVT BEHIND LT KNEE History of Any Multi-Drug Resistant Organisms: None Reported Past Surgical History: Hysterectomy, Tonsillectomy Additional Past Surgical History / Comment(s): LT LITTLE TOE SX. COLONOSCOPY. EGD Past Anesthesia/Blood Transfusion Reactions: No Reported Reaction Past Psychological History: No Psychological Hx Reported Smoking Status: Current every day smoker Past Alcohol Use History: None Reported Past Drug Use History: None Reported - Past Family History Mother Family Medical History: Cancer General Exam Limitations: no limitations General appearance: alert, in no apparent distress Head exam: Present: atraumatic, normocephalic Eye exam: Present: normal appearance, PERRL, EOMI. Absent: nystagmus ENT exam: Present: mucous membranes dry Neck exam: Present: normal inspection. Absent: tenderness, meningismus Respiratory exam: Present: normal lung sounds bilaterally. Absent: respiratory distress, wheezes, rales Cardiovascular Exam: Present: regular rate, normal rhythm GI/Abdominal exam: Present: soft. Absent: distended, tenderness Extremities exam: Present: normal inspection Neurological exam: Present: alert, oriented X3, CN II-XII intact. Absent: motor sensory deficit Psychiatric exam: Present: normal affect, normal mood Skin exam: Present: warm, dry, intact. Absent: cyanosis, diaphoretic Course Vital Signs 01/01/23 01/01/23 08:56 10:18 Temperature 97 F L Pulse Rate 77 70 Respiratory 19 18 Rate Blood Pressure 143/70 141/75 O2 Sat by Pulse 97 99 Oximetry Medical Decision Making - Medical Decision Making Was pt. sent in by a medical professional or institution (, PA, BATCH UNLOADER, urgent care, hospital, or intermediate...) When possible be specific @ -No Did you speak to anyone other than the patient for history (EMS, parent, family, police, friend...)? What history was obtained from this source @ -Paramedics Did you review nursing and triage notes (agree or disagree)? Why? @ -I reviewed and agree with nursing and triage notes Were old charts reviewed (outside hosp., previous admission, EMS record, old EKG, old radiological studies, urgent care reports/EKG's, intermediate records)? Report findings @ -No old charts were reviewed Differential Diagnosis (chest pain, altered mental status, abdominal pain women, abdominal pain men, vaginal bleeding, weakness, fever, dyspnea, syncope, headache, dizziness, GI bleed, back pain, seizure, CVA, palpatations, mental health, musculoskeletal)? @ -Differential Syncope: Valvular disease, hypertrophic cardiomyopathy, pulmonary embolism, tamponade, tachycardia, bradycardia, SD, hypovolemia, hemorrhage, dissection, anemia, intracranial hemorrhage, seizure, hypoglycemia, carbon monoxide poisoning, this is not meant to be an all-inclusive list. EKG interpreted by me (3pts min.). @ EKG: Sinus rhythm rate 74, MO interval 171, QRS duration 83, QTC [address] segment elevation. X-rays interpreted by me (1pt min.). @ -[Chest x-ray negative for acute cardiopulmonary findings CT interpreted by me (1pt min.). @ -[CT brain negative for intracranial hemorrhage or mass effect U/S interpreted by me (1pt. min.). @ -None done What testing was considered but not performed or refused? (CT, X-rays, U/S, labs)? Why? @ -None What meds were considered but not given or refused? Why? @ -None Did you discuss the management of the patient with other professionals (professionals i.e. , PA, BATCH UNLOADER, lab, RT, psych nurse, social services manager, packaging machine operator, teacher, dog license officer supervisor, block and case maker)? Give summary @ -No Was smoking cessation discussed for >3mins.? @ -No Was critical care preformed (if so, how long)? @ -No Were there social determinants of health that impacted care today? How? (Homeles sness, low income, unemployed, alcoholism, drug addiction, transportation, low edu. Level, literacy, decrease access to med. care, penitentiary, rehab)? @ -No Was there de-escalation of care discussed even if they declined (Discuss DNR or withdrawal of care, Hospice)? DNR status @ -No What co-morbidities impacted this encounter? (DM, HTN, Smoking, COPD, CAD, Cancer, CVA, ARF, Chemo, Hep., AIDS, mental health diagnosis, sleep apnea, morbid obesity)? @ -[Peripheral neuropathy, previous Leonardo's palsy Was patient admitted / discharged? Hospital course, mention meds given and route, prescriptions, significant lab abnormalities, going to OR and other pertinent info. @ -[77-year-old female with lightheadedness and bilateral upper and lower extremity tingling. No focal weakness. I did do a workup in the emergency department, chest x-ray, head CT, laboratory testing, EKG. This is unremarkable. Patient feels better after IV hydration. She is stable for discharge with strict return parameters at this time. Undiagnosed new problem with uncertain prognosis? @ -No Drug Therapy requiring intensive monitoring for toxicity (Heparin, Nitro, Insulin, Cardizem)? @ -No Were any procedures done? @ -No Diagnosis/symptom? @Near-syncope, lightheaded Acute, or Chronic, or Acute on Chronic? @ -[Acute Uncomplicated (without systemic symptoms) or Complicated (systemic symptoms)? @ -default Side effects of treatment? @ -No Exacerbation, Progression, or Severe Exacerbation? @ -No Poses a threat to life or bodily function? How? (Chest pain, USA, SD, pneumonia, PE, COPD, DKA, ARF, appy, cholecystitis, CVA, Diverticulitis, Homicidal, Suicidal, threat to staff... and all critical care pts) @ -Low risk at this time - Lab Data Result diagrams: 01/01/23 09:25 01/01/23 09:25 Lab Results 01/01/23 01/01/23 01/01/23 Range/Units 09:25 09:25 09:25 WBC 8.2 (3.8-10.6) k/uL RBC 4.51 (3.80-5.40) m/uL Hgb 14.3 (11.4-16.0) gm/dL Hct 42.7 (34.0-46.0) % MCV 94.6 (80.0-100.0) fL MCH 31.6 (25.0-35.0) pg MCHC 33.4 (31.0-37.0) g/dL RDW 13.0 (11.5-15.5) % Plt Count 272 (150-450) k/uL MPV 7.6 Neutrophils % 65 % Lymphocytes % 23 % Monocytes % 7 % Eosinophils % 3 % Basophils % 0 % Neutrophils # 5.3 (1.3-7.7) k/uL Lymphocytes # 1.9 (1.0-4.8) k/uL Monocytes # 0.6 (0-1.0) k/uL Eosinophils # 0.3 (0-0.7) k/uL Basophils # 0.0 (0-0.2) k/uL PT 9.6 (9.0-12.0) sec INR 0.9 (<1.2) APTT 22.6 (22.0-30.0) sec Sodium (137-145) mmol/L Potassium (3.5-5.1) mmol/L Chloride (98-107) mmol/L Carbon Dioxide (22-30) mmol/L Anion Gap mmol/L BUN (7-17) mg/dL Creatinine (0.52-1.04) mg/dL Est GFR (CKD-EPI)AfAm (>60 ml/min/1.73 sqM) Est GFR (CKD-EPI)NonAf (>60 ml/min/1.73 sqM) Glucose (74-99) mg/dL Calcium (8.4-10.2) mg/dL Magnesium (1.6-2.3) mg/dL Total Bilirubin (0.2-1.3) mg/dL AST (14-36) U/L ALT (4-34) U/L Alkaline Phosphatase (38-126) U/L Troponin I (0.000-0.034) ng/mL Total Protein (6.3-8.2) g/dL Albumin (3.5-5.0) g/dL Urine Color Colorless Urine Appearance Clear (Clear) Urine pH 5.0 (5.0-8.0) Ur Specific [place] 1.015 (1.001-1.035) Urine Protein Negative (Negative) Urine Glucose (UA) Negative (Negative) Urine Ketones Negative (Negative) Urine Blood Negative (Negative) Urine Nitrite Negative (Negative) Urine Bilirubin Negative (Negative) Urine Urobilinogen <2.0 (<2.0) mg/dL Ur Leukocyte Esterase Negative (Negative) 01/01/23 01/01/23 Range/Units 09:25 09:25 WBC (3.8-10.6) k/uL RBC (3.80-5.40) m/uL Hgb (11.4-16.0) gm/dL Hct (34.0-46.0) % MCV (80.0-100.0) fL MCH (25.0-35.0) pg MCHC (31.0-37.0) g/dL RDW (11.5-15.5) % Plt Count (150-450) k/uL MPV Neutrophils % % Lymphocytes % % Monocytes % % Eosinophils % % Basophils % % Neutrophils # (1.3-7.7) k/uL Lymphocytes # (1.0-4.8) k/uL Monocytes # (0-1.0) k/uL Eosinophils # (0-0.7) k/uL Basophils # (0-0.2) k/uL PT (9.0-12.0) sec INR (<1.2) APTT (22.0-30.0) sec Sodium 139 (137-145) mmol/L Potassium 4.4 (3.5-5.1) mmol/L Chloride 106 (98-107) mmol/L Carbon Dioxide 23 (22-30) mmol/L Anion Gap 10 mmol/L BUN 15 (7-17) mg/dL Creatinine 0.58 (0.52-1.04) mg/dL Est GFR (CKD-EPI)AfAm >90 (>60 ml/min/1.73 sqM) Est GFR (CKD-EPI)NonAf 88 (>60 ml/min/1.73 sqM) Glucose 108 H (74-99) mg/dL Calcium 9.6 (8.4-10.2) mg/dL Magnesium 2.3 (1.6-2.3) mg/dL Total Bilirubin 0.5 (0.2-1.3) mg/dL AST 27 (14-36) U/L ALT 20 (4-34) U/L Alkaline Phosphatase 105 (38-126) U/L Troponin I <0.012 (0.000-0.034) ng/mL Total Protein 7.0 (6.3-8.2) g/dL Albumin 4.1 (3.5-5.0) g/dL Urine Color Urine Appearance (Clear) Urine pH (5.0-8.0) Ur Specific [place] (1.001-1.035) Urine Protein (Negative) Urine Glucose (UA) (Negative) Urine Ketones (Negative) Urine Blood (Negative) Urine Nitrite (Negative) Urine Bilirubin (Negative) Urine Urobilinogen (<2.0) mg/dL Ur Leukocyte Esterase (Negative) Disposition Clinical Impression: Dehydration, Near syncope Disposition: HOME SELF-CARE Condition: Good Instructions (If sedation given, give patient instructions): Dehydration (ED), Near Syncope (ED) Is patient prescribed a controlled substance at d/c from ED?: No Referrals: Austyn Ponce MD [Primary Care Provider] - 1-2 days Time of Disposition: 10:39
[2023-01-01 09:42] LABS: Basophils % (A) 0 %; Eosinophils # (A) 0.3 k/uL (0-0.7); Eosinophils % (A) 3 %; HCT 42.7 % (34.0-46.0); HGB 14.3 gm/dL (11.4-16.0); Lymphocytes # (A) 1.9 k/uL (1.0-4.8); Lymphocytes % (A) 23 %; MCH 31.6 pg (25.0-35.0); MCHC 33.4 g/dL (31.0-37.0); MCV 94.6 fL (80.0-100.0); Mean Platelet Volume 7.6; Monocytes # (A) 0.6 k/uL (0-1.0); Monocytes % (A) 7 %; Neutrophils # (A) 5.3 k/uL (1.3-7.7); Neutrophils % (A) 65 %; Platelet Count 272 k/uL (150-450); RBC 4.51 m/uL (3.80-5.40); WBC 8.2 k/uL (3.8-10.6)
--- NOTE | 2023-01-01 09:48 | CT ---
EXAMINATION TYPE: CT brain wo con CT DLP: 1143.8 mGycm, Automated exposure control for dose reduction was used. DATE OF EXAM: 01/01/2023 9:43 AM COMPARISON: 01/06/2020. CLINICAL INDICATION:Female, 77 years old with history of Weakness, Weakness TECHNIQUE: Brain: Axial CT images of the brain were obtained with coronal and sagittal reformats created and rev iewed. Contrast used: None. Oral contrast used: None. FINDINGS: Brain: Extra-axial spaces: No abnormal extra-axial fluid collections. Ventricular system: Dilatation in proportion to cerebral atrophy. Cerebral parenchyma: Mineralization of the basal ganglia. Cerebral atrophy. No acute intraparenchymal hemorrhage or mass effect. The emmanuel-white junction is well differentiated. Scattered hypoattenuatin g areas are seen within the white matter. Cerebellum: Unremarkable. Mass effect: No evidence of midline shift. Intracranial vasculature: unremarkable Soft tissues: Normal. Calvarium/osseous structures: No depressed skull fracture. Paranasal sinuses and mastoid air cells: Mild scattered paranasal sinus disease. Visualized orbits: Bilateral aphakia IMPRESSION: 1. No acute intracranial process. 2. Nonspecific white matter changes, likely secondary to chronic small vessel ischemic disease.
[2023-01-01 09:50] LABS: INR 0.9 (<1.2); Partial Thromboplastin Time 22.6 sec (22.0-30.0); Prothrombin Time 9.6 sec (9.0-12.0)
--- NOTE | 2023-01-01 09:59 | XR ---
EXAMINATION TYPE: XR chest 2V DATE OF EXAM: 01/01/2023 COMPARISON: 06/29/2022 TECHNIQUE: PA and lateral views submitted. HISTORY: Syncope FINDINGS: The lungs are clear and there is no pneumothorax, pleural effusion, or focal pneumonia. Heart size normal and no overt failure. Osseous structures demonstrate hypertrophic and degenerative changes of the spine. Hyperinflation of the lungs. Bilateral shoulder arthropathy. Diffuse osteopenia. Calcifica tion adjacent to the bilateral humeral head can be associated with calcific tendinosis. IMPRESSION: 1. No acute process.
[2023-01-01 10:00] LABS: ALT 20 U/L (4-34); AST 27 U/L (14-36); African American GFR (CKD) >90 (>60 ml/min/1.73 sqM); Albumin 4.1 g/dL (3.5-5.0); Alkaline Phosphatase 105 U/L (38-126); Anion Gap 10 mmol/L; Blood Urea Nitrogen 15 mg/dL (7-17); Calcium 9.6 mg/dL (8.4-10.2); Carbon Dioxide 23 mmol/L (22-30); Chloride 106 mmol/L (98-107); Glucose 108 mg/dL (74-99); Magnesium 2.3 mg/dL (1.6-2.3); Non-African American GFR(CKD) 88 (>60 ml/min/1.73 sqM); Potassium 4.4 mmol/L (3.5-5.1); Sodium 139 mmol/L (137-145); Total Bilirubin 0.5 mg/dL (0.2-1.3)
[2023-01-01 10:20] LABS: Appearance,Urine Clear (Clear); Bilirubin,Urine Negative (Negative); Blood,Urine Negative (Negative); Color,Urine Colorless; Glucose,Urine (UA) Negative (Negative); Ketones,Urine Negative (Negative); Leukocyte Esterase,Urine Negative (Negative); Nitrite,Urine Negative (Negative); Protein,Urine Negative (Negative); Specific Gravity,Urine 1.015 (1.001-1.035); Urobilinogen,Urine <2.0 mg/dL (<2.0)
[2023-01-01 11:21] VITALS: BP 138/91; PULSE 66; RESP 19
== END 2023-01-01 11:21 | disposition home or self-care (01) ==
LOC: EC 08:53
DX: E86.0 Dehydration (principal); R55 Syncope and collapse; E78.5 Hyperlipidemia, unspecified; M19.90 Unspecified osteoarthritis, unspecified site; G51.0 Bell's palsy; G62.9 Polyneuropathy, unspecified; E07.9 Disorder of thyroid, unspecified; Z86.718 Personal history of other venous thrombosis and embolism; F17.200 Nicotine dependence, unspecified, uncomplicated; Z88.6 Allergy status to analgesic agent; Z88.1 Allergy status to other antibiotic agents; Z88.2 Allergy status to sulfonamides; Z88.8 Allergy status to other drugs, medicaments and biological substances; Z79.890 Hormone replacement therapy; Z79.899 Other long term (current) drug therapy
CPT/HCPCS: 36415; 70450; 71046; 80053; 81003; 83735; 84484; 85025; 85610; 85730; 93005; 99285

== ENCOUNTER 2023-05-06 09:48 | Emergency (ER) | payer MEDICARE ==
[2023-05-06] MEDS ORDERED: MORPHINE SULFATE 4 MG/ML SYRINGE IVP STA (10:09)
--- NOTE | 2023-05-06 10:11 | ED ---
General Adult HPI - General Chief complaint: Weakness Stated complaint: Weakness Time Seen by Provider: 05/06/23 09:56 Source: patient, EMS, RN notes reviewed Mode of arrival: EMS Limitations: no limitations - History of Present Illness Initial comments: Patient is a pleasant 77-year-old female presenting to the emergency department with concerns with bilateral leg problems. Patient states is chronic and occurring for many years. Patient does have back problems since age 14. Patient states back discomfort radiates to the legs. Patient states she has chronic weakness and chronic paresthesias. Back pain and leg weakness and paresthesias of the legs and back have not changed at all. Patient has seen her doctor and neurology for these problems. Patient states this morning she also had some left arm paresthesias. No weakness. No headache or confusion. Patient does have history of occasional neck problems. - Related Data Home Medications Medication Instructions Recorded Confirmed Simvastatin [Zocor] 40 mg PO HS 02/03/15 06/29/22 Cholecalciferol [Vitamin D3 (25 50 mcg PO DAILY 06/03/22 06/29/22 Mcg = 1000 Iu)] Famotidine [Pepcid] 40 mg PO DAILY 06/03/22 06/29/22 Levothyroxine Sodium [Synthroid] 88 mcg PO DAILY 06/03/22 06/29/22 Albuterol Inhaler [Ventolin Hfa 2 puff INHALATION RT-QID PRN 06/29/22 06/29/22 Inhaler] Ascorbic Acid [Vitamin C with Zuly 500 mg PO DAILY 06/29/22 06/29/22 Hips] Previous Rx's Medication Instructions Recorded Aspirin 81 mg PO DAILY 7 Days #7 tab 07/01/22 Nitroglycerin Sl Tabs [Nitrostat] 0.4 mg SUBLINGUAL Q5M PRN #10 tab 07/01/22 Allergies Allergy/AdvReac Type Severity Reaction Status Date / Time gabapentin Allergy Nausea & Verified 05/06/23 09:54 Vomiting levofloxacin Allergy Unknown Verified 01/01/23 09:01 naproxen [From Naprosyn] Allergy Rash/Hives Verified 06/29/22 13:36 ranitidine Allergy Rash/Hives Verified 06/29/22 13:36 rofecoxib [From Vioxx] Allergy Nausea & Verified 06/29/22 13:36 Vomiting sulfamethoxazole Allergy Rash/Hives Verified 06/29/22 13:36 [From Bactrim] trimethoprim [From Bactrim] Allergy Rash/Hives Verified 06/29/22 13:36 celecoxib [From Celebrex] AdvReac Nausea & Verified 06/29/22 13:36 Vomiting Review of Systems ROS Statement: Those systems with pertinent positive or pertinent negative responses have been documented in the HPI. ROS Other: All systems not noted in ROS Statement are negative. Constitutional: Denies: fever Eyes: Denies: eye pain ENT: Denies: ear pain Respiratory: Denies: dyspnea Cardiovascular: Denies: chest pain Endocrine: Denies: fatigue Gastrointestinal: Denies: abdominal pain Musculoskeletal: Reports: back pain Neurological: Reports: as per HPI Past Medical History Past Medical History: Deep Vein Thrombosis (DVT), Hyperlipidemia, Osteoarthritis (OA), Thyroid Disorder Additional Past Medical History / Comment(s): HIATAL HERNIA. POSSIBLE DVT BEHIND LT KNEE History of Any Multi-Drug Resistant Organisms: None Reported Past Surgical History: Hysterectomy, Tonsillectomy Additional Past Surgical History / Comment(s): LT LITTLE TOE SX. COLONOSCOPY. EGD Past Anesthesia/Blood Transfusion Reactions: No Reported Reaction Past Psychological History: No Psychological Hx Reported Smoking Status: Current every day smoker Past Alcohol Use History: None Reported Past Drug Use History: None Reported - Past Family History Mother Family Medical History: Cancer General Exam Limitations: no limitations General appearance: alert, in no apparent distress Head exam: Present: normocephalic Eye exam: Present: normal appearance, PERRL, EOMI Neck exam: Present: normal inspection. Absent: tenderness, meningismus Respiratory exam: Present: normal lung sounds bilaterally Cardiovascular Exam: Present: regular rate, normal rhythm GI/Abdominal exam: Present: soft. Absent: tenderness, pulsatile mass Extremities exam: Present: normal inspection, full ROM Back exam: Present: normal inspection Neurological exam: Present: alert, oriented X3, CN II-XII intact Expanded Neurological exam: Present: protecting the airway Speech: Present: fluid speech Sensory exam: Upper Extremity Light Touch: Normal, Lower Extremity Light Touch: Normal Motor strength exam: RUE: 5, LUE: 5, RLE: 4, LLE: 4 Eye Response: (4) open spontaneously Motor Response: (6) obeys commands Verbal Response: (5) oriented Psychiatric exam: Present: normal affect, normal mood Skin exam: Present: normal color Course Vital Signs 01/01/24 09:49 Temperature 98.1 F Pulse Rate 89 Respiratory 18 Rate Blood Pressure 143/95 O2 Sat by Pulse 95 Oximetry EKG Findings - EKG Results: EKG: interpreted by [facility] (Right axis.), sinus rhythm, normal QRS, normal ST/T Medical Decision Making - Medical Decision Making Was pt. sent in by a medical professional or institution (, KRISTEN, DESKTOP ENGINEER, urgent care, hospital, or long-term...) When possible be specific @ -No Did you speak to anyone other than the patient for history (EMS, parent, family, police, friend...)? What history was obtained from this source @ -No Did you review nursing and triage notes (agree or disagree)? Why? @ -I reviewed and agree with nursing and triage notes Were old charts reviewed (outside hosp., previous admission, EMS record, old EKG, old radiological studies, urgent care reports/EKG's, long-term records)? Report findings @ -Previous chest x-ray reviewed. Differential Diagnosis (chest pain, altered mental status, abdominal pain women, abdominal pain men, vaginal bleeding, weakness, fever, dyspnea, syncope, headache, dizziness, GI bleed, back pain, seizure, CVA, palpatations, mental health, musculoskeletal)? @ -Differential Weakness: Hypoglycemia, shock, sepsis, hyponatremia, anemia, infection, WA, ETOH, adverse medicine reaction, overdose, stroke, this is not meant to be an all-inclusive list. EKG interpreted by me (3pts min.). @ -As above X-rays interpreted by me (1pt min.). @ -Chest x-ray shows no acute process CT interpreted by me (1pt min.). @ -CT brain without obvious acute abnormality U/S interpreted by me (1pt. min.). @ -None done What testing was considered but not performed or refused? (CT, X-rays, U/S, labs)? Why? @ -None What meds were considered but not given or refused? Why? @ -None Did you discuss the management of the patient with other professionals (professionals i.e. , KRISTEN, DESKTOP ENGINEER, lab, RT, psych nurse, social work administrator, production checker, teacher, driver's license reviewing officer, casework specialist)? Give summary @ -No Was smoking cessation discussed for >3mins.? @ -No Was critical care preformed (if so, how long)? @ -No Were there social determinants of health that impacted care today? How? (Homelessness, low income, unemployed, alcoholism, drug addiction, transportation, low edu. Level, literacy, decrease access to med. care, intermediate, rehab)? @ -No Was there de-escalation of care discussed even if they declined (Discuss DNR or withdrawal of care, Hospice)? DNR status @ -No What co-morbidities impacted this encounter? (DM, HTN, Smoking, COPD, CAD, Cancer, CVA, ARF, Chemo, Hep., AIDS, mental health diagnosis, sleep apnea, morbid obesity)? @ -None Was patient admitted / discharged? Hospital course, mention meds given and route, prescriptions, significant lab abnormalities, going to OR and other pertinent info. @ -Patient reevaluated and feeling better. Patient confirms leg problems are chronic and unchanged. Patient confirms no arm weakness or loss of sensation. Patient does feel comfortable with discharge home. Patient is updated on results and need for follow-up. Undiagnosed new problem with uncertain prognosis? @ -No Drug Therapy requiring intensive monitoring for toxicity (Heparin, Nitro, Insulin, Cardizem)? @ -No Were any procedures done? @ -No Diagnosis/symptom? @ -Paresthesia Acute, or Chronic, or Acute on Chronic? @ -Acute Uncomplicated (without systemic symptoms) or Complicated (systemic symptoms)? @ -default Side effects of treatment? @ -No Exacerbation, Progression, or Severe Exacerbation? @ -No Poses a threat to life or bodily function? How? (Chest pain, USA, WA, pneumonia, PE, COPD, DKA, ARF, appy, cholecystitis, CVA, Diverticulitis, Homicidal, Suicidal, threat to staff... and all critical care pts) @ -No - Lab Data Result diagrams: 05/06/23 10:20 05/06/23 10:20 Lab Results 05/06/23 05/06/23 05/06/23 Range/Units 10:20 10:20 10:20 WBC 8.6 (3.8-10.6) k/uL RBC 4.38 (3.80-5.40) m/uL Hgb 13.8 (11.4-16.0) gm/dL Hct 41.4 (34.0-46.0) % MCV 94.4 (80.0-100.0) fL MCH 31.5 (25.0-35.0) pg MCHC 33.4 (31.0-37.0) g/dL RDW 12.7 (11.5-15.5) % Plt Count 316 (150-450) k/uL MPV 7.4 Neutrophils % 64 % Lymphocytes % 23 % Monocytes % 7 % Eosinophils % 3 % Basophils % 1 % Neutrophils # 5.6 (1.3-7.7) k/uL Lymphocytes # 2.0 (1.0-4.8) k/uL Monocytes # 0.6 (0-1.0) k/uL Eosinophils # 0.3 (0-0.7) k/uL Basophils # 0.1 (0-0.2) k/uL PT 9.9 L (10.0-12.5) sec INR 0.9 (<1.2) APTT 24.3 (22.0-30.0) sec Sodium 136 L (137-145) mmol/L Potassium 4.5 (3.5-5.1) mmol/L Chloride 102 (98-107) mmol/L Carbon Dioxide 23 (22-30) mmol/L Anion Gap 11 mmol/L BUN 14 (7-17) mg/dL Creatinine 0.57 (0.52-1.04) mg/dL Est GFR (CKD-EPI)AfAm >90 (>60 ml/min/1.73 sqM) Est GFR (CKD-EPI)NonAf 89 (>60 ml/min/1.73 sqM) Glucose 111 H (74-99) mg/dL Plasma Lactic Acid Salvador (0.7-2.0) mmol/L Calcium 9.8 (8.4-10.2) mg/dL Magnesium 2.2 (1.6-2.3) mg/dL Total Bilirubin 0.4 (0.2-1.3) mg/dL AST 26 (14-36) U/L ALT 17 (4-34) U/L Alkaline Phosphatase 107 (38-126) U/L Total Protein 6.9 (6.3-8.2) g/dL Albumin 4.2 (3.5-5.0) g/dL 05/06/23 Range/Units 10:20 WBC (3.8-10.6) k/uL RBC (3.80-5.40) m/uL Hgb (11.4-16.0) gm/dL Hct (34.0-46.0) % MCV (80.0-100.0) fL MCH (25.0-35.0) pg MCHC (31.0-37.0) g/dL RDW (11.5-15.5) % Plt Count (150-450) k/uL MPV Neutrophils % % Lymphocytes % % Monocytes % % Eosinophils % % Basophils % % Neutrophils # (1.3-7.7) k/uL Lymphocytes # (1.0-4.8) k/uL Monocytes # (0-1.0) k/uL Eosinophils # (0-0.7) k/uL Basophils # (0-0.2) k/uL PT (10.0-12.5) sec INR (<1.2) APTT (22.0-30.0) sec Sodium (137-145) mmol/L Potassium (3.5-5.1) mmol/L Chloride (98-107) mmol/L Carbon Dioxide (22-30) mmol/L Anion Gap mmol/L BUN (7-17) mg/dL Creatinine (0.52-1.04) mg/dL Est GFR (CKD-EPI)AfAm (>60 ml/min/1.73 sqM) Est GFR (CKD-EPI)NonAf (>60 ml/min/1.73 sqM) Glucose (74-99) mg/dL Plasma Lactic Acid Salvador 1.1 (0.7-2.0) mmol/L Calcium (8.4-10.2) mg/dL Magnesium (1.6-2.3) mg/dL Total Bilirubin (0.2-1.3) mg/dL AST (14-36) U/L ALT (4-34) U/L Alkaline Phosphatase (38-126) U/L Total Protein (6.3-8.2) g/dL Albumin (3.5-5.0) g/dL Disposition Clinical Impression: Paresthesia Disposition: HOME SELF-CARE Condition: Stable Instructions (If sedation given, give patient instructions): Paresthesia (ED) Additional Instructions: Please do follow-up with your doctor this week. Return for weakness, loss of control of bladder or bowel function, unable to walk, worsening or changing symptoms or any other concerns. Is patient prescribed a controlled substance at d/c from ED?: No Referrals: Austyn Ponce MD [Primary Care Provider] - 1-2 days Time of Disposition: 11:48
[2023-05-06 10:29] LABS: Basophils # (A) 0.1 k/uL (0-0.2); Basophils % (A) 1 %; Eosinophils # (A) 0.3 k/uL (0-0.7); Eosinophils % (A) 3 %; HCT 41.4 % (34.0-46.0); HGB 13.8 gm/dL (11.4-16.0); Lymphocytes % (A) 23 %; MCH 31.5 pg (25.0-35.0); MCHC 33.4 g/dL (31.0-37.0); MCV 94.4 fL (80.0-100.0); Mean Platelet Volume 7.4; Monocytes # (A) 0.6 k/uL (0-1.0); Monocytes % (A) 7 %; Neutrophils # (A) 5.6 k/uL (1.3-7.7); Neutrophils % (A) 64 %; Platelet Count 316 k/uL (150-450); RBC 4.38 m/uL (3.80-5.40); RDW 12.7 % (11.5-15.5); WBC 8.6 k/uL (3.8-10.6)
[2023-05-06 10:39] LABS: ALT 17 U/L (4-34); AST 26 U/L (14-36); African American GFR (CKD) >90 (>60 ml/min/1.73 sqM); Albumin 4.2 g/dL (3.5-5.0); Alkaline Phosphatase 107 U/L (38-126); Anion Gap 11 mmol/L; Blood Urea Nitrogen 14 mg/dL (7-17); Calcium 9.8 mg/dL (8.4-10.2); Carbon Dioxide 23 mmol/L (22-30); Chloride 102 mmol/L (98-107); Glucose 111 mg/dL (74-99); Magnesium 2.2 mg/dL (1.6-2.3); Non-African American GFR(CKD) 89 (>60 ml/min/1.73 sqM); Potassium 4.5 mmol/L (3.5-5.1); Sodium 136 mmol/L (137-145); Total Bilirubin 0.4 mg/dL (0.2-1.3); Total Protein 6.9 g/dL (6.3-8.2)
[2023-05-06 10:52] LABS: INR 0.9 (<1.2); Partial Thromboplastin Time 24.3 sec (22.0-30.0); Prothrombin Time 9.9 sec (10.0-12.5)
--- NOTE | 2023-05-06 11:03 | CT ---
EXAMINATION TYPE: CT brain wo con DATE OF EXAM: 05/06/2023 COMPARISON: 01/01/2023 INDICATION: bilateral leg weakness DLP: 1087.4 mGycm, Automated exposure control for dose reduction was used. CONTRAST: None CT of the brain is performed utilizing 3 mm thick sections through the posterior fossa and 3 mm thick sections through the remaining calvarium. Study is performed within 24 hours of arrival to the hosp ital. No abnormal hyperdensity is present to suggest an acute intracranial hemorrhage. No mass lesion is evident. No acute infarcts are evident. Ventricles and sulci are appropriate for the patient age. Paranasal sinuses and mastoid air cells within the [id number] are clear. IMPRESSION: 1. No acute intracranial process. Follow-up MRI can be performed as clinically indicated
--- NOTE | 2023-05-06 11:17 | XR ---
EXAMINATION TYPE: XR chest 2V DATE OF EXAM: 05/06/2023 COMPARISON: 01/01/2023 INDICATION: Weakness in lower legs TECHNIQUE: Frontal and lateral views of the chest are obtained. FINDINGS: The heart size is normal. The pulmonary vasculature is normal. The lungs are clear. IMPRESSION: 1. No acute pulmonary process.
[2023-05-06 12:36] VITALS: BP 146/72; PULSE 79; RESP 20; TEMP 98.3
== END 2023-05-06 12:12 | disposition home or self-care (01) ==
LOC: EC 09:48
DX: R20.2 Paresthesia of skin (principal); E78.5 Hyperlipidemia, unspecified; E07.9 Disorder of thyroid, unspecified; F17.200 Nicotine dependence, unspecified, uncomplicated; Z79.890 Hormone replacement therapy; Z79.899 Other long term (current) drug therapy; Z88.1 Allergy status to other antibiotic agents; Z88.6 Allergy status to analgesic agent; Z88.2 Allergy status to sulfonamides; Z88.8 Allergy status to other drugs, medicaments and biological substances
CPT/HCPCS: 99285; 96374; 36415; 93005; 80053; 83605; 83735; 85025; 85610; 85730; 71046; 70450; J2270

== ENCOUNTER → 2023-05-08 | Outpatient (CLI) | payer MEDICARE ==
--- NOTE | 2023-05-08 13:29 | US ---
EXAMINATION TYPE: US venous doppler duplex LE RT DATE OF EXAM: 05/08/2023 1:05 PM COMPARISON: CLINICAL INDICATION: Female, 77 years old with history of RLE; R22.41 LOCALIZED SWELLING, MASS AND YUMIKO MP; SIDE PERFORMED: Right TECHNIQUE: The lower extremity deep venous system is examined utilizing real time linear array sonog kalyn with graded compression, doppler sonography and color-flow sonography. VESSELS IMAGED: Common Femoral Vein Deep Femoral Vein Greater Saphenous Vein * Femoral Vein Popliteal Vein Small Saphenous Vein * Proximal Calf Veins (* superficial vessels) Right Leg: Negative for DVT IMPRESSION: 1. Right lower extremity ultrasound negative for deep venous thrombosis.
--- NOTE | 2023-05-08 14:47 | XR ---
EXAMINATION TYPE: XR lumbar spine 2 or 3V DATE OF EXAM: 05/08/2023 1:44 PM CLINICAL INDICATION:Female, 77 years old with history of R20.2 PARESTHESIA OF SKIN; H COMPARISON: 05/08/2023 TECHNIQUE: XR lumbar spine 2 or 3V - Frontal, lateral and coned in L5-S1 lateral views of the spine. FINDINGS: No evidence of any acute osseous pathology. No evidence of loss of vertebral body height i s seen. There is scoliosis alignment of the lumbar vertebral bodies DEXA scoliosis apex L3. There is grade 1 anterolisthesis of L4 and L5. Retrolisthesis of L2 on L3. Mild scattered disc space narrowing . Multilevel marginal osteophyte formation throughout the visualized spine. There is facet joint arth ropathy throughout the spine. Scattered at least mild neural foraminal stenosis. Neural foraminal jonah nosis worse at L4-L5. Atherosclerosis of the arterial vasculature. IMPRESSION: 1. No acute fracture. 2. Severe multilevel disc degeneration. 3. Grade 1 anterolisthesis of L4 and L5.
--- NOTE | 2023-05-08 14:53 | XR ---
EXAMINATION TYPE: XR cervical spine limited DATE OF EXAM: 05/08/2023 1:44 PM CLINICAL INDICATION:Female, 77 years old with history of R20.2 PARESTHESIA OF SKIN; PH[facility] COMPARISON: None TECHNIQUE: The cervical spine was imaged in frontal, lateral, and odontoid. FINDINGS: The osseous structures show normal alignment without evidence of an acute fracture. There are osteoph ytes noted throughout the cervical spine on the anterior and lateral aspects of the vertebral bodies. The intervertebral disk spaces are narrowed at multiple levels Pedicles are intact. Soft tissues ar e within normal limits. The odontoid appears intact. IMPRESSION: 1. No fracture or dislocation. 2. Moderate degenerative disc disease changes of the cervical spine.
== END | disposition home or self-care (01) ==
LOC: RADUSWWP 12:20
PROVIDERS: ATTEND Family Medicine
DX: M43.16 Spondylolisthesis, lumbar region (principal); M51.36 Other intervertebral disc degeneration, lumbar region; M50.30 Other cervical disc degeneration, unspecified cervical region; R22.41 Localized swelling, mass and lump, right lower limb; R20.2 Paresthesia of skin
CPT/HCPCS: 72040; 72100

== ENCOUNTER → 2023-10-14 | Outpatient (CLI) | payer MEDICARE ==
--- NOTE | 2023-10-15 07:43 | BD ---
EXAMINATION TYPE: Axial Bone Density DATE OF EXAM: 10/14/2023 CLINICAL HISTORY: 78 years old Female. ICD-10 CODE: Z78.0 ASYM MENOPAUSAL STATE Height: 5 ft 2 1/2 in Weight: 158 FRAX RISK QUESTIONS: Alcohol (3 or more units per day): no Family History (Parent hip fracture): no Glucocorticoids (More than 3mos): no (Ex: prednisone, prednisolone, methylprednisolone, dexamethasone, and hydrocortisone). History of Fracture in Adulthood: yes Secondary Osteoporosis: 1. Type 1 Diabetes: no 2. Hyperthyroidism: no 3. Menopause before 45: yes 4. Malnutrition: no 5. Chronic liver disease: no Rheumatoid Arthritis: no Current Tobacco Use: yes RISK FACTORS HISTORY OF: Surgery to Spine/Hip(right/left)/Wrist (right/left): none MEDICATIONS: Thyroid Medications: yes Which medication: levothyroxine How Lon years Osteoporosis Medications: none EXAM MEASUREMENTS: Bone mineral densitometry was performed using the [employer] System. Bone mineral density as measured about the Lumbar spine is: ----- L1-L4(G/cm2): 1.408 T Score Values are as follows: ----- L1: 1.1 ----- L2: 1.9 ----- L3: 2.7 ----- L4: 1.6 ----- L1-L4: 1.9 Z Score Values are as follows: ----- L1: 2.7 ----- L2: 3.5 ----- L3: 4.3 ----- L4: 3.2 ----- L1-L4: 3.5 Bone mineral density has: decreased -0.6 % since study of: 2020 Bone mineral density about the R hip (g/cm2): 0.783 Bone mineral density about the L hip (g/cm2): 0.876 T Score values are as follows: -----R Neck: -1.8 -----L Neck: -1.2 -----R Total: -1.2 -----L Total: -1.3 Z Score values are as follows: -----R Neck: 0.2 -----L Neck: 0.8 -----R Total: 0.7 -----L Total: 0.6 Bone mineral density has: decreased -2.2 % since study of: 2020 FRAX%s: The graph provided illustrates a 22.2 % chance for a major osteoporotic fx and a 8.4 % chance for the hips probability for fx in 10 years time. IMPRESSION: Osteopenia (T Score between -2.5 and -1). There is slightly increased risk of fracture and the patient may be considered for treatment. Re-Screen 2-5 years. NOTE: T-SCORE=SD OF THE YOUNG ADULT MEAN.
--- NOTE | 2023-10-15 09:56 | MM ---
Reason for Exam: Screening (asymptomatic). Last mammogram was performed 1 year(s) and 9 month(s) ago. Patient History: Menarche at age 12. First Full-Term at age 18. Left ovary removed at age 34. Right ovary removed at age 34. Hysterectomy at age 34. Postmenopausal. Estrogen for 22 years, 7 months. Maternal grandmother had breast cancer. Risk Values: Mayuri 5 year model risk: 1.3%. NCI Lifetime model risk: 2.1%. Prior Study Comparison: 02/13/2016 Bilateral Screening Mammogram, [facility]. 07/05/2020 Bilateral Screening Mammogram, [facility]. 01/12/2022 Bilateral MG 3D screening mammo w/cad, [facility]. Tissue Density: The breasts are heterogeneously dense, which may obscure small masses. Findings: Analyzed By CAD. There is no suspicious group of microcalcifications or new suspicious mass in either breast. Chronic nodularity and benign-appearing calcifications are stable. Overall Assessment: Benign, BI-RAD 2 Management: Screening Mammogram of both breasts in 1 year. . Patient should continue monthly self-breast exams. A clinical breast exam by your physician is recommended on an annual basis. This exam should not preclude additional follow-up of suspicious palpable abnormalities. Note on Mayuri scores and lifetime risk: 1. A Mayuri score greater than 3% is considered moderate risk. If this is the case, consider specialist referral to assess eligibility for a risk reducing agent. 2. If overall lifetime risk for the development of breast cancer is 20% or higher, the patient may qualify for future screening with alternating mammogram and breast MRI. Electronically signed and approved by: Kalen Antonio M.D. Radiologis
== END | disposition home or self-care (01) ==
LOC: RADMAMWWP 15:10
PROVIDERS: ATTEND Family Medicine
DX: Z12.31 Encounter for screening mammogram for malignant neoplasm of breast (principal); M85.89 Other specified disorders of bone density and structure, multiple sites; Z78.0 Asymptomatic menopausal state; Z80.3 Family history of malignant neoplasm of breast
CPT/HCPCS: 77063; 77067; 77080

== ENCOUNTER → 2024-07-20 | Outpatient (CLI) | payer MEDICARE ==
--- NOTE | 2024-07-20 14:49 | NM ---
EXAMINATION TYPE: NM hepatobiliary w CCK DATE OF EXAM: 07/20/2024 2:35 PM COMPARISON: 02/14/2019 CLINICAL INDICATION:Female, 78 years old with history of R10.13 EPIGASTRIC PAIN; TECHNIQUE: The patient was given 4.4 mCi of Technetium 99m-Mebrofenin as a radiotracer and multiple scintigraphic images were obtained of the abdomen. Gallbladder function was also assessed after the a dministration of 1.44 mcg of Kinevac (cholecystokinin) and additional scintigraphic images were obtai jossy of the abdomen. A region of interest was drawn over the gallbladder and a timing activity curve w as generated. The gallbladder ejection fraction was calculated. Kinevac: 1.44 mcg FINDINGS: Normal uptake of radiotracer was identified within the liver with excretion into the hepatic and comm on biliary ducts within 2 min. There was normal progressive washout of the liver over the course of t he study. Radiotracer uptake within the gallbladder at 6 minutes as well as small bowel activity was identified at 20 minutes. Maximum calculated gallbladder ejection fraction is: 95% at 29minutes (Normal gallbladder ejection fraction is > 35%) IMPRESSION: 1. Normal hepatobiliary scan. 2. Normal ejection fraction. [facility], , 07/20/2024 2:47 PM
== END | disposition home or self-care (01) ==
LOC: RADNMMAIN 12:26
PROVIDERS: ATTEND Family Medicine
DX: R10.13 Epigastric pain (principal)
CPT/HCPCS: 78227; A9537; J2805

== ENCOUNTER 2024-10-15 10:44 | Emergency (ER) | payer MEDICARE ==
[2024-10-15] MEDS: IPRATROPIUM-ALBUTEROL 3 ML NEB INHALATION STA ×2 (11:51→14:10)
[2024-10-15] MEDS: SODIUM CHLORIDE 0.9% 1,000 ML IV ONE (11:53)
[2024-10-15] MEDS: MAGNESIUM SULFATE-D5W PMX 1 GM in DEXTROSE/WATER 1 100ML.BAG IVPB STA (11:53)
[2024-10-15] MEDS: methylPREDNISolone SOD SUCCI 125 MG/2 ML VIAL IV STA (11:58)
[2024-10-15 12:14] LABS: Basophils # (A) 0.08 10*3/uL (0.00-0.10); Basophils % (A) 0.8 %; Eosinophils # (A) 0.88 10*3/uL (0.04-0.35); Eosinophils % (A) 8.8 %; HCT 35.6 % (37.2-46.3); HGB 11.9 g/dL (12.0-15.0); Lymphocytes # (A) 2.23 10*3/uL (0.90-5.00); Lymphocytes % (A) 22.2 %; MCH 31.2 pg (27.0-32.0); MCHC 33.4 g/dL (32.0-37.0); MCV 93.4 fL (80.0-97.0); Monocytes # (A) 0.87 10*3/uL (0.20-1.00); Monocytes % (A) 8.7 %; Neutrophils # (A) 5.92 10*3/uL (1.80-7.70); Platelet Count 267 10*3/uL (140-440); RBC 3.81 10*6/uL (4.10-5.20); RDW 13.3 % (11.5-14.5); WBC 10.03 10*3/uL (4.50-10.00)
[2024-10-15 12:31] LABS: ALT 14 U/L (4-34); AST 22 U/L (14-36); African American GFR (CKD) >90 (>60 ml/min/1.73 sqM); Albumin 3.8 g/dL (3.5-5.0); Alkaline Phosphatase 84 U/L (38-126); Anion Gap 8 mmol/L; Blood Urea Nitrogen 20 mg/dL (7-17); Calcium 9.8 mg/dL (8.4-10.2); Carbon Dioxide 25 mmol/L (22-30); Chloride 105 mmol/L (98-107); Glucose 135 mg/dL (74-99); Non-African American GFR(CKD) 87 (>60 ml/min/1.73 sqM); Potassium 3.8 mmol/L (3.5-5.1); Sodium 138 mmol/L (137-145); Total Bilirubin 0.3 mg/dL (0.2-1.3); Total Protein 6.5 g/dL (6.3-8.2)
--- NOTE | 2024-10-15 12:36 | XR ---
EXAMINATION TYPE: XR chest 2V DATE OF EXAM: 10/15/2024 12:18 PM COMPARISON: 05/06/2023 CLINICAL INDICATION: Female, 79 years old with history of difficulty breathing, TECHNIQUE: XR chest 2V view(s) obtained. FINDINGS: The heart size is normal. The pulmonary vasculature is normal. The lungs are clear. IMPRESSION: 1. No acute pulmonary process. [facility], , 10/15/2024 12:33 PM
[2024-10-15 14:28] VITALS: BP 131/84; PULSE 86; RESP 18; TEMP 97.9
--- NOTE | 2024-10-15 14:33 | ED ---
General Adult HPI - General Chief complaint: Shortness of Breath Stated complaint: NOVA Time Seen by Provider: 10/15/24 11:10 Source: patient, EMS, RN notes reviewed, old records reviewed Mode of arrival: EMS Limitations: no limitations - History of Present Illness Initial comments: Patient is an 79-year-old female presents emergency department complaining of cough, congestion. Start this morning. Has a history of COPD and is on inhalers at home. Has had a minimally productive cough. No fevers. No nausea or vomiting. No abdominal pain. No chest pain. Has no other acute complaints at this time. Presents for further evaluation at this time. - Related Data Home Medications Medication Instructions Recorded Confirmed Simvastatin [Zocor] 40 mg PO HS 02/03/15 06/29/22 Cholecalciferol [Vitamin D3 (25 50 mcg PO DAILY 06/03/22 06/29/22 Mcg = 1000 Iu)] Famotidine [Pepcid] 40 mg PO DAILY 06/03/22 06/29/22 Levothyroxine Sodium [Synthroid] 88 mcg PO DAILY 06/03/22 06/29/22 Albuterol Inhaler [Ventolin Hfa 2 puff INHALATION RT-QID PRN 06/29/22 06/29/22 Inhaler] Ascorbic Acid [Vitamin C with Zuly 500 mg PO DAILY 06/29/22 06/29/22 Hips] Previous Rx's Medication Instructions Recorded Aspirin 81 mg PO DAILY 7 Days #7 tab 07/01/22 Nitroglycerin Sl Tabs [Nitrostat] 0.4 mg SUBLINGUAL Q5M PRN #10 tab 07/01/22 Azithromycin [Zithromax] 250 mg PO DAILY 4 Days #4 tab 10/15/24 predniSONE [Deltasone] 40 mg PO DAILY 5 Days #10 tab 10/15/24 Allergies Allergy/AdvReac Type Severity Reaction Status Date / Time gabapentin Allergy Nausea & Verified 10/15/24 10:56 Vomiting levofloxacin Allergy Unknown Verified 10/15/24 10:56 naproxen [From Naprosyn] Allergy Rash/Hives Verified 10/15/24 10:56 ranitidine Allergy Rash/Hives Verified 10/15/24 10:56 rofecoxib [From Vioxx] Allergy Nausea & Verified 10/15/24 10:56 Vomiting sulfamethoxazole Allergy Rash/Hives Verified 10/15/24 10:56 [From Bactrim] trimethoprim [From Bactrim] Allergy Rash/Hives Verified 10/15/24 10:56 celecoxib [From Celebrex] AdvReac Nausea & Verified 10/15/24 10:56 Vomiting Review of Systems ROS Statement: Those systems with pertinent positive or pertinent negative responses have been documented in the HPI. Review of Systems: CONST: Denies fever EYES: Denies blurry vision ENT: Endorses nasal congestion C/V: Denies Chest pain RESP: Endorses cough GI: Denies abdominal pain : Denies dysuria SKIN: Denies rash. MSK: Denies joint pain. NEURO: Denies headache ROS Other: All systems not noted in ROS Statement are negative. Past Medical History Past Medical History: Deep Vein Thrombosis (DVT), Hyperlipidemia, Osteoarthritis (OA), Thyroid Disorder Additional Past Medical History / Comment(s): HIATAL HERNIA. POSSIBLE DVT BEHI ND LT KNEE History of Any Multi-Drug Resistant Organisms: None Reported Past Surgical History: Hysterectomy, Tonsillectomy Additional Past Surgical History / Comment(s): LT LITTLE TOE SX. COLONOSCOPY. EGD Past Anesthesia/Blood Transfusion Reactions: No Reported Reaction Past Psychological History: No Psychological Hx Reported Smoking Status: Former smoker Past Alcohol Use History: None Reported Past Drug Use History: None Reported - Past Family History Mother Family Medical History: Cancer General Exam - General Exam Comments Initial Comments: General: Appears in no acute distress. HEAD: Normal with no signs of head trauma. EYES: EOMI ENT: Hearing grossly intact, normal oropharynx. RESPIRATORY: Coarse breath sounds bilaterally with bilateral end expiratory wheezing. No hypoxia. No significant increased work of breathing. C/V: Regular rate and rhythm. S1 and S2 auscultated, no edema, peripheral pulses 2+ and intact throughout ABD: Abd is soft, nontender, nondistended EXT: Normal range of motion, no obvious deformity SKIN: No rashes or lesions observed on exposed skin. NEURO: Alert and orient x 4. Limitations: no limitations Course Vital Signs 10/15/24 10/15/24 10/15/24 10:46 11:52 12:00 Temperature 97.8 F Pulse Rate 89 85 87 Respiratory 20 Rate Blood Pressure 141/79 O2 Sat by Pulse 94 L Oximetry 10/15/24 10/15/24 10/15/24 14:10 14:20 14:27 Temperature 97.9 F Pulse Rate 86 84 86 Respiratory 18 Rate Blood Pressure 131/84 O2 Sat by Pulse 94 L Oximetry Medical Decision Making - Medical Decision Making Was pt. sent in by a medical professional or institution (KRISTEN Carmona, HOTEL OPERATION MANAGER, urgent care, hospital, or [facility]...) When possible be specific @ -No Did you speak to anyone other than the patient for history (EMS, parent, family, police, friend...)? What history was obtained from this source @ -No Did you review nursing and triage notes (agree or disagree)? Why? @ -I reviewed and agree with nursing and triage notes Were old charts reviewed (outside hosp., previous admission, EMS record, old EKG, old radiological studies, urgent care reports/EKG's, [facility] records)? Report findings @ -No old charts were reviewed Differential Diagnosis (chest pain, altered mental status, abdominal pain women, abdominal pain men, vaginal bleeding, weakness, fever, dyspnea, syncope, headache, dizziness, GI bleed, back pain, seizure, CVA, palpatations, mental health, musculoskeletal)? @ -COPD, viral syndrome, pneumonia. This list is not all inclusive. EKG interpreted by me (3pts min.). @ -As above X-rays interpreted by me (1pt min.). @ -Chest x-ray reveals no obvious acute cardiopulmonary process. CT interpreted by me (1pt min.). @ -None done U/S interpreted by me (1pt. min.). @ -None done What testing was considered but not performed or refused? (CT, X-rays, U/S, labs)? Why? @ -None What meds were considered but not given or refused? Why? @ -None Did you discuss the management of the patient with other professionals (professionals i.e. KRISTEN Carmona, HOTEL OPERATION MANAGER, lab, RT, psych nurse, social problems specialist, hair baler, teacher, desk officer, employment evaluator/case manager)? Give summary @ -No Was smoking cessation discussed for >3mins.? @ -No Was critical care preformed (if so, how long)? @ -No Were there social determinants of health that impacted care today? How? (Homelessness, low income, unemployed, alcoholism, drug addiction, dior sportation, low edu. Level, literacy, decrease access to med. care, senior living, rehab)? @ -No Was there de-escalation of care discussed even if they declined (Discuss DNR or withdrawal of care, Hospice)? DNR status @ -No What co-morbidities impacted this encounter? (DM, HTN, Smoking, COPD, CAD, Cancer, CVA, ARF, Chemo, Hep., AIDS, mental health diagnosis, sleep apnea, morbid obesity)? @ -COPD Was patient admitted / discharged? Hospital course, mention meds given and route, prescriptions, significant lab abnormalities, going to OR and other pertinent info. @ -Patient presents with what appears to be a COPD exacerbation. Possible infectious as well. We will obtain chest x-ray, labs, screening EKG. She will be symptomatic with IV steroids, fluids, breathing treatment. She was in agreement this plan. Vitals are within acceptable limits. Laboratory studies are remarkable for a mild leukocytosis of 10. Mild anemia of 11.9 with no recent comparison. Chest x-ray unremarkable. EKG unremarkable. Attempted to obtain viral swabs however lab kept losing the swabs. Following 2 breathing treatments, patient's lungs do sound improved. She is feeling improved. Vitals are within acceptable limits. She will be discharged home at this time. She will be treated for tracheobronchitis and COPD with oral steroids as well as azithromycin at home. She has no need for refills of her inhalers per patient. Recommended strict return precautions as well as follow- up with her PCP. She will be given pulmonology for follow-up as well. I will provide the patient with a prescription for prednisone, azithromycin. I instructed the patient to follow up with their PCP in the next 1-3 days.. I explained that the patient should return to the emergency department if they experience any worsening symptoms. Strict return precautions were discussed with the patient. The patient expressed understanding of these instructions. I answered all questions that the patient had. The patient was discharged home in good condition with their prescriptions and follow up information. Undiagnosed new problem with uncertain prognosis? @ -No Drug Therapy requiring intensive monitoring for toxicity (Heparin, Nitro, Insulin, Cardizem)? @ -No Were any procedures done? @ -No Diagnosis/symptom? @ -COPD, tracheobronchitis Acute, or Chronic, or Acute on Chronic? @ -Acute Uncomplicated (without systemic symptoms) or Complicated (systemic symptoms)? @ -Uncomplicated Side effects of treatment? @ -No Exacerbation, Progression, or Severe Exacerbation? @ -No Poses a threat to life or bodily function? How? (Chest pain, [place], [place], pneumonia, PE, COPD, DKA, ARF, appy, cholecystitis, CVA, Diverticulitis, Homicidal, Suicidal, threat to staff... and all critical care pts) @ -Unlikely at this time - Lab Data Result diagrams: 10/15/24 11:47 10/15/24 11:47 Lab Results 10/15/24 10/15/24 Range/Units 11:47 11:47 WBC 10.03 H (4.50-10.00) 10*3/uL RBC 3.81 L (4.10-5.20) 10*6/uL Hgb 11.9 L (12.0-15.0) g/dL Hct 35.6 L (37.2-46.3) % MCV 93.4 (80.0-97.0) fL MCH 31.2 (27.0-32.0) pg MCHC 33.4 (32.0-37.0) g/dL Plt Count 267 (140-440) 10*3/uL MPV 10.0 (9.5-12.2) fL Immature Gran % (Auto) 0.5 % Neutrophils % 59.0 % Lymphocytes % 22.2 % Monocytes % 8.7 % Eosinophils % 8.8 % Basophils % 0.8 % Immature Gran # 0.05 H (0.00-0.04) 10*3/uL Neutrophils # 5.92 (1.80-7.70) 10*3/uL Lymphocytes # 2.23 (0.90-5.00) 10*3/uL Monocytes # 0.87 (0.20-1.00) 10*3/uL Eosinophils # 0.88 H (0.04-0.35) 10*3/uL Basophils # 0.08 (0.00-0.10) 10*3/uL Sodium 138 (137-145) mmol/L Potassium 3.8 (3.5-5.1) mmol/L Chloride 105 (98-107) mmol/L Carbon Dioxide 25 (22-30) mmol/L Anion Gap 8 mmol/L BUN 20 H (7-17) mg/dL Creatinine 0.58 (0.52-1.04) mg/dL Est GFR (CKD-EPI)AfAm >90 (>60 ml/min/1.73 sqM) Est GFR (CKD-EPI)NonAf 87 (>60 ml/min/1.73 sqM) Glucose 135 H (74-99) mg/dL Calcium 9.8 (8.4-10.2) mg/dL Total Bilirubin 0.3 (0.2-1.3) mg/dL AST 22 (14-36) U/L ALT 14 (4-34) U/L Alkaline Phosphatase 84 (38-126) U/L Total Protein 6.5 (6.3-8.2) g/dL Albumin 3.8 (3.5-5.0) g/dL - EKG Data -: EKG Interpreted by Me EKG Comments: 12-lead Electrocardiogram Interpretation Note EKG was reviewed and interpreted by myself. 12-lead ECG performed at 1129 is i nterpreted by me as revealing normal sinus rhythm at a rate of 84 beats per minute. [place] is normal. CT interval is 149 ms, QRS durations 84 ms, QTc is 411 ms.. There were no ST or T wave abnormalities to suggest myocardial ischemia or injury. R wave progression across the precordium was satisfactory. By my interpretation this EKG is non-diagnostic for acute ischemia. Disposition Clinical Impression: COPD (chronic obstructive pulmonary disease), Tracheobronchitis Disposition: HOME SELF-CARE Condition: Good Instructions (If sedation given, give patient instructions): Acute Bronchitis (ED), COPD (Chronic Obstructive Pulmonary Disease) (ED) Prescriptions: predniSONE [Deltasone] 40 mg PO DAILY 5 Days #10 tab Azithromycin [Zithromax] 250 mg PO DAILY 4 Days #4 tab Is patient prescribed a controlled substance at d/c from ED?: No Referrals: Austyn Ponce MD [Primary Care Provider] - 1-2 days Roshni Traore MD [STAFF PHYSICIAN] - 1-2 days Time of Disposition: 14:33
[2024-10-15] MEDS: AZITHROMYCIN 500 MG TAB PO STA (14:51)
== END 2024-10-15 15:00 | disposition home or self-care (01) ==
LOC: EC 10:44
DX: J44.9 Chronic obstructive pulmonary disease, unspecified (principal); J40 Bronchitis, not specified as acute or chronic; Z88.1 Allergy status to other antibiotic agents; Z88.2 Allergy status to sulfonamides; Z88.6 Allergy status to analgesic agent; Z88.8 Allergy status to other drugs, medicaments and biological substances; Z87.891 Personal history of nicotine dependence
CPT/HCPCS: 36415; 94640 ×2; 93005; 80053; 85025; 71046; 99285; 96365; 96375; J3475; J2919